=== PATIENT | male | born 1965 | race Caucasian/White ===

== ENCOUNTER 2020-05-16 23:24 | Emergency (ER) | payer OTHER, SELFPAY ==
[2020-05-16 23:27] VITALS: BP 145/84; PULSE 93; RESP 18; TEMP 36.7; O2SAT 95; BMI 28.1
--- NOTE | 2020-05-17 01:10 | XR_ITS ---
EXAMINATION: XR CHEST CLINICAL INFORMATION: Cough COMPARISON: 09/19/2017 TECHNIQUE: 2 views of the chest were obtained. FINDINGS: The lungs are well expanded. There is no focal consolidation, edema, or effusion. No pneumothorax. The cardiomediastinal silhouette is within normal limits. No acute osseous abnormality. IMPRESSION: Clear lungs.
[2020-05-17 02:16] LABS: MANUAL DIFF FLAG NO
[2020-05-17 02:17] LABS: Basophils Percent Auto 0.3 % (0-2); Eosinophils Absolute Auto 0.1 X10*3/uL (0.0-0.4); Eosinophils Percent Auto 1.4 % (0-4); Hematocrit 43.9 % (42-52); Hemoglobin 14.1 g/dl (14.0-18.0); Imm Gran Abs Auto 0.03 X10*3/uL (0.00-0.03); Imm Gran Pct Auto 0.3 % (0.0-0.4); Lymphocytes Absolute Auto 2.5 X10*3/uL (1.2-4.9); Lymphocytes Percent Auto 24.9 % (20-40); Mean Corpuscular HGB Conc 32.1 g/dl (31.0-36.0); Mean Corpuscular Hemoglobin 28.2 pg (27.0-33.0); Mean Corpuscular Volume 87.8 fL (80-98); Mean Platelet Volume 10.2 fL (9.4-12.4); Monocytes Percent Auto 9.6 % (2-11); Neutrophils Absolute Auto 6.3 X10*3/uL (2.0-8.3); Neutrophils Percent Auto 63.5 % (45-73); Platelet Count 232 X10*3/uL (160-400); Red Cell Distribution Width 14.1 % (11.0-16.0)
[2020-05-17 02:46] LABS: Alanine Aminotransferase 27 U/L (0-40); Albumin Level 4.2 g/dL (3.5-5.0); Alkaline Phosphatase 107 U/L (39-117); Anion Gap 13 (12-20); Aspartate Amino Transferase 22 U/L (5-37); Bilirubin Direct < 0.2 mg/dL (0.0-0.5); Bilirubin Total 0.3 mg/dL (0.0-1.0); Blood Urea Nitrogen 20 mg/dL (9-16); Calcium 9.5 mg/dL (8.4-10.2); Carbon Dioxide 28 mmol/L (22-29); Chloride 105 mmol/L (96-108); Creatinine Clr Calc Pharmacy 99.2; Estimated Glomerular Filt Rate > 60; Glucose Random 113 mg/dL (60-115); Lipase 43 U/L (8-78); Potassium 4.3 mmol/l (3.3-5.1); Sodium 142 mmol/L (135-145); Total Protein 6.9 g/dL (6.5-8.0)
[2020-05-17 02:49] LABS: Troponin-I High Sensitivity 11.3 ng/L (<3.5-35.0)
--- NOTE | 2020-05-17 04:06 | ED.GENADULT ---
HPI - General Adult General Chief complaint: Dyspnea Stated complaint: SOB /ASTHMA Time Seen by Provider: 05/17/20 01:28 Source: patient Mode of arrival: ambulatory History of Present Illness HPI narrative: Related Data Allergies Allergy/AdvReac Type Severity Reaction Status Date / Time No Known Allergies Allergy Unverified 04/24/20 18:29 [No Known Allergies*] [facility] Past Medical History Medical History (Updated 05/17/20 @ 04:11 by Devyn Orosco DO) Anxiety Asthma Family History Family History (Updated 05/17/20 @ 05:36 by Devyn Orosco DO) Other Family history non-contributory Social History Social History Advance Directives: No Advance Directives Information Provided: No Physical Exam Vital Signs and I&O and Narrative: Vital Signs and I&O: Vital Signs Temp 98.1 F 05/16/20 23:27 Pulse 93 05/16/20 23:27 Resp 18 05/16/20 23:27 BP 145/84 H 05/16/20 23:27 Pulse Ox 95 05/16/20 23:27 Intake & Output 05/16/20 05/16/20 05/17/20 06:59 18:59 06:59 Weight 81.647 kg Body Mass Index 28.1 Medical Decision Making Lab Data Result diagrams: 05/17/20 02:11 05/17/20 02:11 Labs: Lab Results 05/17/20 05/17/20 05/17/20 Range/Units 02:11 02:11 02:11 WBC 10.0 (4.8-10.8) X10*3/uL RBC 5.00 (4.60-5.80) X10*6/uL Hgb 14.1 (14.0-18.0) g/dl Hct 43.9 (42-52) % MCV 87.8 (80-98) fL MCH 28.2 (27.0-33.0) pg MCHC 32.1 (31.0-36.0) g/dl RDW 14.1 (11.0-16.0) % Plt Count 232 (160-400) X10*3/uL MPV 10.2 (9.4-12.4) fL Immature Gran % (Auto) 0.3 (0.0-0.4) % Neut % (Auto) 63.5 (45-73) % Lymph % (Auto) 24.9 (20-40) % [place] % (Auto) 9.6 (2-11) % Eos % (Auto) 1.4 (0-4) % Baso % (Auto) 0.3 (0-2) % Lymph # (Auto) 2.5 (1.2-4.9) X10*3/uL [place] # (Auto) 1.0 (0.1-1.2) X10*3/uL Eos # (Auto) 0.1 (0.0-0.4) X10*3/uL Baso # (Auto) 0.0 (0.0-0.2) X10*3/uL Abs Immat Gran (auto) 0.03 (0.00-0.03) X10*3/uL Absolute Neuts (auto) 6.3 (2.0-8.3) X10*3/uL Absolute Nucleated RBC 0.000 (0.0-0.012) X10*3/uL Nucleated RBC % (auto) 0.0 (0.0-0.2) /100WBC Sodium 142 (135-145) mmol/L Potassium 4.3 (3.3-5.1) mmol/l Chloride 105 (96-108) mmol/L Carbon Dioxide 28 (22-29) mmol/L Anion Gap 13 (12-20) BUN 20 H (9-16) mg/dL Creatinine 0.86 (0.5-1.4) mg/dL Estim Creat Clear Calc 99.2 Estimated GFR > 60 Random Glucose 113 (60-115) mg/dL Calcium 9.5 (8.4-10.2) mg/dL Total Bilirubin 0.3 (0.0-1.0) mg/dL Direct Bilirubin < 0.2 (0.0-0.5) mg/dL AST 22 (5-37) U/L ALT 27 (0-40) U/L Alkaline Phosphatase 107 (39-117) U/L Troponin I High Sens 11.3 (<3.5-35.0) ng/L Total Protein 6.9 (6.5-8.0) g/dL Albumin 4.2 (3.5-5.0) g/dL Lipase 43 (8-78) U/L Discharge Plan Discharge Clinical Impression: Acute viral pharyngitis Upper respiratory infection Qualifiers: URI type: unspecified viral URI Qualified Code(s): J06.9 - Acute upper respiratory infection, unspecified Patient Disposition: Home, Self-Care Instructions: Pharyngitis (ED), Cold Symptoms (ED) Additional Instructions: CDC Guidelines for home isolation: Follow these instructions until your Covid results return - Stay away from others - Limit contact with pets and animals: If you must care for a pet, wash your hands before and after interacting with them - Wear a mask if you are sick - Cover your mouth and nose with a tissue when you cough or sneeze. Dispose of tissues in a lined trash can and wash your hands immediately with soap and water for at least 20 seconds. If soap and water are not available, clean hands with alcohol-based hand fisher pound net or trap that contains at least 60% alcohol. - Clean your hands often with soap and water for at least 20 seconds - Avoid touching your eyes, nose and mouth with unwashed hands - Do not share dishes, drinking glasses, cups, eating utensils, towels, or bedding with other people in your home. After using these items, wash them thoroughly with soap and water or put in the director of media. - Clean high-touch surfaces in your isolation area ( sick room and bathroom) every day; let a caregiver clean and disinfect high-touch surfaces in other areas of the home. Clean the area or item with soap and water or another detergent if it is dirty. Then, use a household disinfectant. Seek medical attention, but call first: - Seek medical care right away if your illness is worsening (for example, if you have difficulty breathing). - Call your doctor before going in: Before going to the doctor's office or emergency room, call ahead and tell them your symptoms. They will tell you what to do. - If possible, put on a facemask before you enter the building. If you can't put on a facemask, try to keep a safe distance from other people (at least 6 feet away). This will help protect the people in the office or waiting room. - Follow care instructions from your healthcare provider and local health department: Your local health authorities will give instructions on checking your symptoms and reporting information. Emergency warning signs for COVID-19: - Difficulty breathing or shortness of breath - Persistent pain or pressure in the chest - New confusion or inability to arouse - Bluish lips or face CDC Guidelines for home isolation: Follow these instructions until your Covid results return - Stay away from others - Limit contact with pets and animals: If you must care for a pet, wash your hands before and after interacting with them - Wear a mask if you are sick - Cover your mouth and nose with a tissue when you cough or sneeze. Dispose of tissues in a lined trash can and wash your hands immediately with soap and water for at least 20 seconds. If soap and water are not available, clean hands with alcohol-based hand fisher pound net or trap that contains at least 60% alcohol. - Clean your hands often with soap and water for at least 20 seconds - Avoid touching your eyes, nose and mouth with unwashed hands - Do not share dishes, drinking glasses, cups, eating utensils, towels, or bedding with other people in your home. After using these items, wash them thoroughly with soap and water or put in the director of media. - Clean high-touch surfaces in your isolation area ( sick room and bathroom) every day; let a caregiver clean and disinfect high-touch surfaces in other areas of the home. Clean the area or item with soap and water or another detergent if it is dirty. Then, use a household disinfectant. Seek medical attention, but call first: - Seek medical care right away if your illness is worsening (for example, if you have difficulty breathing). - Call your doctor before going in: Before going to the doctor's office or emergency room, call ahead and tell them your symptoms. They will tell you what to do. - If possible, put on a facemask before you enter the building. If you can't put on a facemask, try to keep a safe distance from other people (at least 6 feet away). This will help protect the people in the office or waiting room. - Follow care instructions from your healthcare provider and local health department: Your local health authorities will give instructions on checking your symptoms and reporting information. Emergency warning signs for COVID-19: - Difficulty breathing or shortness of breath - Persistent pain or pressure in the chest - New confusion or inability to arouse - Bluish lips or face Thank you for visiting the emergency department today. If your symptoms worsen or do not resolve completely please return to the emergency department immediately or call 911. if he have any questions please call your primary care physician Referrals: Beba Alba MD [Primary Care Provider] - 2 days Interventions: ED Discharge Assessment Last Done: 05/17/20 04:18 Discharge Date/Time: 05/17/20 04:18
== END 2020-05-17 04:18 | disposition home or self-care (01) ==
PROVIDERS: Emergency Provider Emergency Medicine; PCP Internal Medicine
DX: J02.8 Acute pharyngitis due to other specified organisms (principal); J06.9 Acute upper respiratory infection, unspecified; Z20.828 Contact with and (suspected) exposure to other viral communicable diseases; Z79.899 Other long term (current) drug therapy
CPT/HCPCS: 36415; 71046; 80048; 80076; 83690; 84484; 85025; 87071; 87635; 99283

== ENCOUNTER 2020-08-14 14:36 | Outpatient (REF) | payer OTHER, SELFPAY | END 2020-08-14 14:37 | disposition home or self-care (01) | LOC: HO.LAB 14:36 | PROVIDERS: Visit Provider Internal Medicine | DX: Z20.828 Contact with and (suspected) exposure to other viral communicable diseases (principal) | CPT/HCPCS: 36415; C9803; U0003 ==

== ENCOUNTER → 2020-12-17 10:26 | Outpatient (BNVA) | payer OTHER, SELFPAY | PROVIDERS: PCP Internal Medicine; Visit Provider Physician Assistant | DX: M67.432 Ganglion, left wrist (principal); M65.30 Trigger finger, unspecified finger | CPT/HCPCS: 99202 ==

== ENCOUNTER 2021-01-15 12:27 | Day surgery (SDC) | payer OTHER, SELFPAY ==
[2021-01-09 10:43] VITALS: BMI 28.1
--- NOTE | 2021-01-14 09:53 | HO.ANESPROP2 ---
Documented by User: Jolanta Hoang 01/14/21 09:54 HPI - Anesthesia Eval Consult details Narrative: 55yo M for Left Excision of Ganglion Wrist Cyst and Flexor Tendon Repair with Excision Ulnar Ring Finger PMFSH Active Problems Active Problems: All Active Problems (Updated 12/17/20 @ 13:27 by Elina Guerra PA-C) Ganglion, right wrist (Acute) Trigger finger, right (Acute) Ganglion, left wrist (Acute) Trigger finger, left (Acute) Past Medical History Medical History Anxiety Asthma Family History Family History Father No problems noted. Mother No problems noted. Brother No problems noted. Sister No problems noted. Son No problems noted. Daughter No problems noted. Other Family history non-contributory Surgical History Surgical History H/O colonoscopy History of inguinal hernia repair Hx of hand surgery Social History Social History Patient Tobacco Use Status: Former Tobacco user Use of substances other than those prescribed or required for medical reasons: No Are you DNR?: No Advance Directives: No Advance Directives Information Provided: Yes Current occupational status: disabled Current occupation: left handed Meds Allergies Allergy/AdvReac Type Severity Reaction Status Date / Time No Known Allergies Allergy Verified 01/15/21 12:53 [No Known Allergies*] Home Medications Medication Instructions Recorded Confirmed Last Taken Type melatonin 2 cap PO BEDTIME PRN 01/15/21 01/15/21 Unknown History Exam Exam Date and Time: January 14, 2021 0953 Height,Weight and Vital Signs: Height 5 ft 7 in Weight 81.647 kg Airway Adult Head Mouth w/Numbe Teeth: 1. Loose Assessment and Plan Assessment Anesthesia Assessment: Chart Reviewed Documented by User: Adarsh Cordon MD 01/15/21 14:01 [facility] Past Medical History Medical History Anxiety Asthma Family History Family History Father No problems noted. Mother No problems noted. Brother No problems noted. Sister No problems noted. Son No problems noted. Daughter No problems noted. Other Family history non-contributory Surgical History Surgical History H/O colonoscopy History of inguinal hernia repair Hx of hand surgery Social History Social History Patient Tobacco Use Status: Former Tobacco user Use of substances other than those prescribed or required for medical reasons: No Are you DNR?: No Advance Directives: No Advance Directives Information Provided: Yes Current occupational status: disabled Current occupation: left handed Meds Allergies Allergy/AdvReac Type Severity Reaction Status Date / Time No Known Allergies Allergy Verified 01/15/21 12:53 [No Known Allergies*] Home Medications Medication Instructions Recorded Confirmed Last Taken Type melatonin 2 cap PO BEDTIME PRN 01/15/21 01/15/21 Unknown History Exam Airway Mallampati Class: II TM Dist: >3cm Neck ROM: Full Adult Head Mouth w/Numbe Teeth: 1. Loose Loose/Missing/Broken Teeth: Yes Assessment and Plan Assessment Anesthesia Assessment: Anesthesia Plan Discussed and Chart Reviewed Final Anesthetic Review NPO: Yes ASA Class: II Final Preanesthetic Review: No Changes in Pt Med Stat, Meds/Allgs Chart Reviewed, Consent Obtained/Reviewed and Anes Risks/Benef Reviewed Patient Risk: Low Procedure Risk: Low Anesthetic Plan Anesthetic Plan: GA Disposition: Standard PACU
[2021-01-15 13:05] VITALS: BP 136/83; PULSE 72; RESP 16; TEMP 36.7; O2SAT 97
[2021-01-15] MEDS: Lactated Ringers 1,000 ML 100 ML IVCONT (13:34)
--- NOTE | 2021-01-15 14:45 | MHC.SHP ---
Pre-Procedural Eval Section B Chief Complaint: ganglion,trigger finger Allergies: Allergies Allergy/AdvReac Type Severity Reaction Status Date / Time No Known Allergies Allergy Verified 01/15/21 12:53 [No Known Allergies*] Plan I have reviewed the history and physical and performed a pertinent physical examination on my patient. No changes have occurred unless specified.
--- NOTE | 2021-01-15 14:45 | W.PM.OPN ---
Operative Note Operative Note Date of Service: 01/15/21 Narrative: Operative Note Narrative: Preop diagnosis: 1. The left volar wrist ganglion over the CMC joint of the left thumb 2. Left ring finger persistent trigger finger status post A1 kathi release Postop diagnosis: Same Procedure: 1. Left volar wrist ganglion excisional biopsy 2. Left ring finger flexor digitorum superficialis tenotomy of the ulnar slip Surgeon: Malini Martinez MD Anesthesia: Mac plus regional block Findings: No locking and catching after tenotomy, 1.5 cm ganglion cyst filled with clear viscous fluid consistent with a ganglion Implants: None Tourniquet time: 36 minutes EBL: 5.0 ml Specimen: Ganglion and the ulnar 1/2 of the ring finger FDS tendon Drains: None Complications: None Disposition: Brought to the recovery room in stable condition Plan: Follow-up in 10-14 days for wound check, suture removal and to check pathology Indications: The patient is a 55 year old man with a ganglion over the volar base of the left thumb at the CMC joint, and a persistent left ring finger trigger finger after having an A1 kathi release at an outside facility a few years ago. . The risks and benefits of operative treatment, including but not limited to risk of damage to blood vessels, nerves, tendons, infection, recurrence, persistent pain or numbness, incomplete resolution of preoperative symptoms, or need for further surgery were discussed with the patient and they wished to proceed with surgery. Procedure: Once consent was obtained patient was brought back to the operating suite and placed in the operating table in a supine position. . Perioperative antibiotics and anesthesia was administered by the anesthesia team. A tourniquet was applied to the proximal aspect of the left upper extremity and the limb was prepped and draped in a standard surgical fashion. The limb was elevated exsanguinated with Esmarch bandage and the tourniquet inflated to 250 mm of mercury for a total tourniquet time of 36 minutes. An interrupted burners incision was made over the A3 and A1 kathi areas of the patient's left ring finger. The incisions were made through the skin to the subcutaneous tissues using a 15. Blade. I then dissected down to the level of the flexor tendon sheath at the A1 kathi level. The A1 kathi was then released by incising it longitudinally 1st with a 15. Blade then with tenotomy scissors. I then opened the A3 kathi over the PIP level of the flexor tendon sheath. This was done longitudinally using tenotomy scissors. The FDP tendon was retracted radially and the ulnar slip of the FDS tendon was identified. I then performed a tenotomy of the ulnar slip of the FDS tendon by incising it with a 15. Blade. Tenotomy scissors were used to longitudinally incise the connection between the radial and ulnar slips of the FDS tendon. At the A1 kathi level I then withdrew the ulnar slip of the FDS tendon and incised the proximal aspect of the ulnar slip from the proximal aspect of the FDS tendon in a beveled fashion. There was no longer any locking and catching with passive range of motion. The slip of flexor tendon was sent for pathology. I then turned my attention to the volar ganglion which was situated distal to the distal wrist crease essentially lying over the volar radial aspect of the CMC joint of the thumb. A 2.5 cm longitudinal Incision was made through the skin to the subcutaneous tissue directly over the ganglion. This was done using a 15. Blade. I then carefully dissected down to the level of the volar wrist ganglion. It measured at least 1.5 cm in diameter with a stalk extending down to the wrist joint. We dissect the cyst from the surrounding tissues. Care was taken to protect the radial artery which was visualized just deep to our ganglion. Bipolar electrocautery was utilized to cauterize the stalk and the ganglion was removed and placed on the back table and sent for histopathology. No further masses were identified. At this point the tourniquet was deflated and hemostasis obtained with a brief period of local pressure and bipolar electrocautery. The wounds were copiously irrigated with normal saline. The skin edges were reapproximated with 5-0 nylon suture. The wounds were infiltrated with some 1% lidocaine with epinephrine for postop pain control and a sterile dressing was applied. The patient appears to have tolerated the procedures well and with no complications. All digits were well vascularized conclusion of the case.
[2021-01-15 16:02] VITALS: BP 130/69; PULSE 82; RESP 12; TEMP 36.7; O2SAT 97
[2021-01-15 16:07] VITALS: BP 136/64; PULSE 88; RESP 16; O2SAT 95
[2021-01-15 16:13] VITALS: BP 126/67; PULSE 85; RESP 18; O2SAT 96
[2021-01-15 16:17] VITALS: BP 133/74; PULSE 67; RESP 18; O2SAT 95
[2021-01-15 16:30] VITALS: BP 131/75; PULSE 65; RESP 18; TEMP 36.6; O2SAT 95
== END 2021-01-15 16:39 | disposition home or self-care (01) ==
PROVIDERS: PCP Internal Medicine; Visit Provider Orthopaedic Surgery
PROC: (CPT 25111; principal; 2021-01-15 14:40)
PROC: (CPT 25111; 2021-01-15 14:40)
DX: M67.432 Ganglion, left wrist (principal); M65.342 Trigger finger, left ring finger; J45.909 Unspecified asthma, uncomplicated; F41.9 Anxiety disorder, unspecified; Z87.891 Personal history of nicotine dependence
CPT/HCPCS: 25111; 26170; 88304; J0690; J1100; J2250; J2405; J3010

== ENCOUNTER → 2021-01-26 09:53 | Outpatient (BNVA) | payer OTHER, SELFPAY | PROVIDERS: Visit Provider Orthopaedic Surgery | DX: M67.432 Ganglion, left wrist (principal); M65.342 Trigger finger, left ring finger | CPT/HCPCS: 99212 ==

== ENCOUNTER 2021-04-13 14:55 | Inpatient (IN) | payer OTHER, SELFPAY ==
[2021-04-13] VITALS (11 sets, daily range): BP systolic 122–142; BP diastolic 65–85; PULSE 65–93; RESP 15–18; TEMP 36.1–37.1; O2SAT 94–98; BMI 27.3; BMI 27.9
--- NOTE | ~2021-04-13 | CT_ITS ---
EXAMINATION: CT ABDOMEN AND PELVIS WITH CONTRAST CLINICAL INFORMATION: Right lower quadrant pain COMPARISON: Prior chest radiograph TECHNIQUE: Multidetector volumetric images were obtained from the superior aspect of the liver through the pubic symphysis following administration 85 mL of Omnipaque 350 intravenous contrast. Sagittal and coronal reformatted images were obtained on the technologist's workstation. Oral contrast: No This CT examination was performed using dose optimization techniques as appropriate, variously including the following: *Automated exposure control *Adjustment of mA and/or kV according to patient size (this includes techniques or standardized protocols for targeted exams where dose is matched to indication/reason for exam; i.e. extremities or head) *Use of iterative reconstruction technique DLP: 532 mGy-cm FINDINGS: LUNG BASES: Minor dependent atelectasis. LIVER, GALLBLADDER, AND BILIARY TREE: The liver is normal in size, shape, and attenuation. No focal hepatic lesion or biliary ductal dilatation is present. The gallbladder is unremarkable with no evidence of radiopaque gallstones, gallbladder wall thickening, or obvious pericholecystic inflammatory changes. PANCREAS: Unremarkable. SPLEEN: Unremarkable. ADRENAL GLANDS: Unremarkable. KIDNEYS AND URETERS: The kidneys are normal in size, shape, and attenuation. No hydronephrosis, hydroureter, or calculi seen. No perinephric stranding. BLADDER: Unremarkable. GASTROINTESTINAL TRACT: The appendix is abnormally dilated measuring 12 mm in transverse dimension, and distended with stool. No definite appendicolith. There is periappendiceal fat stranding. This appearance is consistent with early acute appendicitis. Incidental note is made of a small right inguinal hernia containing a nonobstructed small bowel loop. A small left inguinal hernia contains only fat. No free air. No free fluid. No abscess. No bulky adenopathy. No bowel obstruction. The visualized esophagus and stomach are normal in appearance. Shotty mesenteric lymph nodes are nonspecific. ABDOMINAL WALL: As noted above, small right inguinal hernia contains nonobstructed small bowel loop. Small left internal hernia contains only fat. LYMPH NODES: Shotty mesenteric nodes are nonspecific. No retroperitoneal celiac or periportal adenopathy. VASCULAR: Normal caliber abdominal aorta. No caval or branch vessel abnormality identified. PELVIC VISCERA: Prostate and seminal vesicles are within normal limits. No pelvic free fluid or lymphadenopathy OSSEOUS STRUCTURES: Shortness moderately severe degenerative disc disease at the L5-S1 level. CT/CT abdomen pelvis w con IMPRESSION: 1. Early acute appendicitis. 2. Bilateral inguinal hernias, the right containing nonobstructed small bowel. This critical result was discussed with Dr. Felix at 6:44 PM on 04/13/2020 and it was ascertained that the content and urgency of the report was understood at the time of direct communication.
--- NOTE | 2021-04-13 16:30 | ED.ABDPAIN ---
HPI - Abdominal Pain General Chief Complaint: Abdominal Pain Stated Complaint: ABD PAIN Time Seen by Provider: 04/13/21 16:29 Source: patient Mode of arrival: ambulatory Limitations: no limitations History of Present Illness HPI narrative: Patient no significant abdominal problem noticed pain in the right lower quadrant since 19:00 yesterday during got worse had 2 or 3 loose bowels earlier no fever no chills does not feel hungry patient never had similar pain in the past no history of kidney stone no urinary complaints no blood in the stool Related Data Home Medications Medication Instructions Recorded Confirmed melatonin 5 mg capsule 2 cap PO BEDTIME PRN 01/15/21 01/15/21 Previous Rx's Medication Instructions Recorded oxycodone-acetaminophen 5 mg-325 1 - 2 tab PO Q6H PRN #20 tab 01/15/21 mg tablet acetaminophen 500 mg capsule 1,000 mg PO Q6H PRN 30 Days #90 cap 01/21/21 Allergies Allergy/AdvReac Type Severity Reaction Status Date / Time No Known Allergies Allergy Verified 01/26/21 10:19 [No Known Allergies*] Review of Systems Review of Systems Yes all other systems are reviewed and are negative Physical Exam Vital Signs: Vital Signs: Last Vital Signs Temp 98.3 F 04/13/21 20:15 Pulse 77 04/13/21 20:15 Resp 16 04/13/21 20:15 BP 139/78 04/13/21 20:15 Pulse Ox 97 04/13/21 20:15 Body Mass Index 27.3 Appearance: Alert. Oriented X3. No acute distress. Eyes: PERRLA, No Nystagmus no pallor or icterus ENT: Pharynx normal. Oral Mucosa moist Neck: Normal inspection. Neck supple. CVS: Normal heart rate and rhythm. Pulses normal. Respiratory: No respiratory distress. Equal air entry bilateral, no wheezing/rales/rhonchi Abdomen: Soft , tenderness right lower quadrant with guarding no rebound tenderness Bowel sounds are present, no mass palpable, no CVA tenderness Skin: Skin warm and dry. Normal skin color. Normal skin turgor. Extremities: No lower extremity edema. No calf tenderness Neuro: Oriented X 3. No motor deficit MDM - Abdominal Pain MDM Narrative Medical decision making narrative: Patient uncomplicated acute appendicitis seen by Dr. Geller surgery will take the patient to OR tonight patient has slightly elevated lactic acid level was given IV Zosyn and IV fluids in the ER Lab Data Attestation: I reviewed the patient's lab results. Result diagrams: 04/13/21 16:56 04/13/21 16:56 Labs: Lab Results 04/13/21 04/13/21 04/13/21 Range/Units 16:56 16:56 16:56 WBC 11.8 H (4.8-10.8) X10*3/uL RBC 5.15 (4.60-5.80) X10*6/uL Hgb 14.4 (14.0-18.0) g/dl Hct 44.2 (42-52) % MCV 85.8 (80-98) fL MCH 28.0 (27.0-33.0) pg MCHC 32.6 (31.0-36.0) g/dl RDW 13.5 (11.0-16.0) % Plt Count 250 (160-400) X10*3/uL MPV 10.0 (9.4-12.4) fL Immature Gran % (Auto) 0.3 (0.0-0.4) % Neut % (Auto) 70.7 (45-73) % Lymph % (Auto) 20.4 (20-40) % [place] % (Auto) 7.5 (2-11) % Eos % (Auto) 0.8 (0-4) % Baso % (Auto) 0.3 (0-2) % Lymph # (Auto) 2.4 (1.2-4.9) X10*3/uL [place] # (Auto) 0.9 (0.1-1.2) X10*3/uL Eos # (Auto) 0.1 (0.0-0.4) X10*3/uL Baso # (Auto) 0.0 (0.0-0.2) X10*3/uL Abs Immat Gran (auto) 0.03 (0.00-0.03) X10*3/uL Absolute Neuts (auto) 8.4 H (2.0-8.3) X10*3/uL Absolute Nucleated RBC 0.000 (0.0-0.012) X10*3/uL Nucleated RBC % (auto) 0.0 (0.0-0.2) /100WBC Sodium 140 (135-145) mmol/L Potassium 4.7 (3.3-5.1) mmol/L Chloride 104 (96-108) mmol/L Carbon Dioxide 28 (22-29) mmol/L Anion Gap 13 (12-20) BUN 13 (9-16) mg/dL Creatinine 0.85 (0.5-1.4) mg/dL Estim Creat Clear Calc 98.0 Estimated GFR > 60 Random Glucose 92 (60-115) mg/dL Lactic Acid 3.0 H* (0.5-2.0) mmol/L Calcium 9.3 (8.4-10.2) mg/dL Total Bilirubin 0.3 (0.0-1.0) mg/dL AST 22 (5-37) U/L ALT 24 (0-40) U/L Alkaline Phosphatase 126 H (39-117) U/L Total Protein 7.3 (6.5-8.0) g/dL Albumin 4.2 (3.5-5.0) g/dL Lipase 45 (8-78) U/L Urine Color Urine Appearance Urine pH (5.0-8.0) Ur Specific [place] (1.005-1.025) Urine Protein (NEG-TRACE) MG/DL Urine Glucose (UA) (NEG) MG/DL Urine Ketones (NEG) MG/DL Urine Blood (NEG) Urine Nitrite (NEG) Ur Leukocyte Esterase (NEG) 04/13/21 Range/Units 16:56 WBC (4.8-10.8) X10*3/uL RBC (4.60-5.80) X10*6/uL Hgb (14.0-18.0) g/dl Hct (42-52) % MCV (80-98) fL MCH (27.0-33.0) pg MCHC (31.0-36.0) g/dl RDW (11.0-16.0) % Plt Count (160-400) X10*3/uL MPV (9.4-12.4) fL Immature Gran % (Auto) (0.0-0.4) % Neut % (Auto) (45-73) % Lymph % (Auto) (20-40) % [place] % (Auto) (2-11) % Eos % (Auto) (0-4) % Baso % (Auto) (0-2) % Lymph # (Auto) (1.2-4.9) X10*3/uL [place] # (Auto) (0.1-1.2) X10*3/uL Eos # (Auto) (0.0-0.4) X10*3/uL Baso # (Auto) (0.0-0.2) X10*3/uL Abs Immat Gran (auto) (0.00-0.03) X10*3/uL Absolute Neuts (auto) (2.0-8.3) X10*3/uL Absolute Nucleated RBC (0.0-0.012) X10*3/uL Nucleated RBC % (auto) (0.0-0.2) /100WBC Sodium (135-145) mmol/L Potassium (3.3-5.1) mmol/L Chloride (96-108) mmol/L Carbon Dioxide (22-29) mmol/L Anion Gap (12-20) BUN (9-16) mg/dL Creatinine (0.5-1.4) mg/dL Estim Creat Clear Calc Estimated GFR Random Glucose (60-115) mg/dL Lactic Acid (0.5-2.0) mmol/L Calcium (8.4-10.2) mg/dL Total Bilirubin (0.0-1.0) mg/dL AST (5-37) U/L ALT (0-40) U/L Alkaline Phosphatase (39-117) U/L Total Protein (6.5-8.0) g/dL Albumin (3.5-5.0) g/dL Lipase (8-78) U/L Urine Color YELLOW Urine Appearance CLEAR Urine pH 6.5 (5.0-8.0) Ur Specific [place] 1.020 (1.005-1.025) Urine Protein NEG (NEG-TRACE) MG/DL Urine Glucose (UA) NEG (NEG) MG/DL Urine Ketones NEG (NEG) MG/DL Urine Blood NEG (NEG) Urine Nitrite NEG (NEG) Ur Leukocyte Esterase NEG (NEG) Imaging Data CT scan - abdomen: Radiologist's impression: [address] [address] [address] Scan Report Signed Patient: Jack Graham MR#: [id number] : 1965 Acct:[id number] Age/Sex: 55 / M ADM Date: 04/13/21 Loc: HO.ED Attending Dr: Ordering Physician: Fede Solorio MD Date of Service: 04/13/21 Procedure(s): CT abdomen pelvis w con Accession Number(s): [id number] cc: Fede Solorio MD~ EXAMINATION: CT ABDOMEN AND PELVIS WITH CONTRAST? CLINICAL INFORMATION: Right lower quadrant pain? COMPARISON: Prior chest radiograph? TECHNIQUE: Multidetector volumetric images were obtained from the superior aspect of the liver through the pubic symphysis following administration 85 mL of Omnipaque 350 intravenous contrast. Sagittal and coronal reformatted images were obtained on the technologist's workstation.? Oral contrast: No This CT examination was performed using dose optimization techniques as appropriate, variously including the following: *Automated exposure control *Adjustment of mA and/or kV according to patient size (this includes techniques or standardized protocols for targeted exams where dose is matched to indication/reason for exam; i.e. extremities or head) *Use of iterative reconstruction technique DLP: 532 mGy-cm FINDINGS: LUNG BASES: Minor dependent atelectasis.? LIVER, GALLBLADDER, AND BILIARY TREE: The liver is normal in size, shape, and attenuation. No focal hepatic lesion or biliary ductal dilatation is present. The gallbladder is unremarkable with no evidence of radiopaque gallstones, gallbladder wall thickening, or obvious pericholecystic inflammatory changes.? PANCREAS: Unremarkable.? SPLEEN: Unremarkable.? ADRENAL GLANDS: Unremarkable.? KIDNEYS AND URETERS: The kidneys are normal in size, shape, and attenuation. No hydronephrosis, hydroureter, or calculi seen. No perinephric stranding. ? BLADDER: Unremarkable.? GASTROINTESTINAL TRACT: The appendix is abnormally dilated measuring 12 mm in transverse dimension, and distended with stool. No definite appendicolith. There is periappendiceal fat stranding. This appearance is consistent with early acute appendicitis. Incidental note is made of a small right inguinal hernia containing a nonobstructed small bowel loop. A small left inguinal hernia contains only fat. No free air. No free fluid. No abscess. No bulky adenopathy. No bowel obstruction. The visualized esophagus and stomach are normal in appearance. [place] mesenteric lymph nodes are nonspecific.? ABDOMINAL WALL: As noted above, small right inguinal hernia contains nonobstructed small bowel loop. Small left internal hernia contains only fat.? LYMPH NODES: [place] mesenteric nodes are nonspecific. No retroperitoneal celiac or periportal adenopathy. VASCULAR: Normal caliber abdominal aorta. No caval or branch vessel abnormality identified. PELVIC VISCERA: Prostate and seminal vesicles are within normal limits. No pelvic free fluid or lymphadenopathy? OSSEOUS STRUCTURES: Shortness moderately severe degenerative disc disease at the L5-S1 level.? CT/CT abdomen pelvis w con IMPRESSION: ? 1. Early acute appendicitis. ? 2. Bilateral inguinal hernias, the right containing nonobstructed small bowel. ? This critical result was discussed with Dr. Felix at 6:44 PM on 04/13/2020 and it was ascertained that the content and urgency of the report was understood at the time of direct communication. ? Dictated By: MAGO TAYLOR MD Signed By: <Electronically signed by MAGO TAYLOR MD in OV> 04/13/21 1845 DD/ 1633 TD/TT:? Delivery Representative: ALLY Discharge Plan Discharge Clinical Impression: Acute appendicitis Qualifiers: Acute appendicitis type: with localized peritonitis Appendicitis gangrene presence: without gangrene Appendicitis perforation presence: without perforation Appendicitis abscess presence: without abscess Qualified Code(s): K35.30 - Acute appendicitis with localized peritonitis, without perforation or gangrene Patient Disposition: Admitted As Inpatient [facility] Past Medical History Medical History Anxiety Asthma Surgical History H/O colonoscopy History of inguinal hernia repair Hx of hand surgery Family History Family History Father No problems noted. Mother No problems noted. Brother No problems noted. Sister No problems noted. Son No problems noted. Daughter No problems noted. Other Family history non-contributory Social History Social History Patient Tobacco Use Status: Former Tobacco user Advance Directives: No Current occupational status: disabled Current occupation: left handed
[2021-04-13] MEDS: 0.9 % Sodium Chloride 1,000 ML 999 ML IVCONT ×2 (16:57→18:27)
[2021-04-13] MEDS: ondansetron HCL 4 MG/2 ML VIAL IVPUSH (17:00)
[2021-04-13] MEDS: Morphine Sulfate 4 MG/ML CARTRIDGE IVPUSH (17:01)
[2021-04-13 17:02] LABS: MANUAL DIFF FLAG NO
[2021-04-13 17:03] LABS: Basophils Percent Auto 0.3 % (0-2); Eosinophils Absolute Auto 0.1 X10*3/uL (0.0-0.4); Eosinophils Percent Auto 0.8 % (0-4); Hematocrit 44.2 % (42-52); Hemoglobin 14.4 g/dl (14.0-18.0); Imm Gran Abs Auto 0.03 X10*3/uL (0.00-0.03); Imm Gran Pct Auto 0.3 % (0.0-0.4); Lymphocytes Absolute Auto 2.4 X10*3/uL (1.2-4.9); Lymphocytes Percent Auto 20.4 % (20-40); Mean Corpuscular HGB Conc 32.6 g/dl (31.0-36.0); Mean Corpuscular Volume 85.8 fL (80-98); Monocytes Absolute Auto 0.9 X10*3/uL (0.1-1.2); Monocytes Percent Auto 7.5 % (2-11); Neutrophils Absolute Auto 8.4 X10*3/uL (2.0-8.3); Neutrophils Percent Auto 70.7 % (45-73); Platelet Count 250 X10*3/uL (160-400); Red Blood Count 5.15 X10*6/uL (4.60-5.80); Red Cell Distribution Width 13.5 % (11.0-16.0); White Blood Count 11.8 X10*3/uL (4.8-10.8)
[2021-04-13 17:04] LABS: Glucose Urine UA NEG (NEG); Leukocyte Esterase Urine NEG (NEG); Nitrite Urine NEG (NEG); PH 6.5 (5.0-8.0); Urine Blood NEG (NEG); Urine Ketones NEG (NEG); Urine Protein NEG (NEG-TRACE)
[2021-04-13 17:06] LABS: Appearance Urine CLEAR; Color Urine YELLOW
[2021-04-13 17:22] LABS: Alanine Aminotransferase 24 U/L (0-40); Albumin Level 4.2 g/dL (3.5-5.0); Alkaline Phosphatase 126 U/L (39-117); Anion Gap 13 (12-20); Aspartate Amino Transferase 22 U/L (5-37); Bilirubin Total 0.3 mg/dL (0.0-1.0); Blood Urea Nitrogen 13 mg/dL (9-16); Calcium 9.3 mg/dL (8.4-10.2); Carbon Dioxide 28 mmol/L (22-29); Chloride 104 mmol/L (96-108); Estimated Glomerular Filt Rate > 60; Glucose Random 92 mg/dL (60-115); Lipase 45 U/L (8-78); Potassium 4.7 mmol/L (3.3-5.1); Sodium 140 mmol/L (135-145); Total Protein 7.3 g/dL (6.5-8.0)
[2021-04-13] MEDS: iohexoL 350 MG/ML 100 ML INFUS..BTL IV (18:12)
[2021-04-13] MEDS: Piperacillin Sodium/Tazobactam 3.375 GM in 0.9 % Sodium Chloride 50 ML IV (18:27)
[2021-04-13 19:00] LABS: Reflex Lactate? Lactic Acid Added
--- NOTE | 2021-04-13 19:32 | P.HPGS_ITS ---
History of Present Illness History of Present Illness Date of Service: 04/13/21 Chief complaint: ABD PAIN Narrative: Jack Collier is a 55 year old male presenting with complaints of abdominal pain in the right lower quadrant which began yesterday afternoon. He initially felt he needed to go to the bathroom but after having 3 bowel movements the pain did not improve. The pain became worse today any subsequently presented to the emergency department. He reports pain with ambulation but does have an appetite. He denies nausea, vomiting, fever, or chills. Denies a previous history of similar symptoms. Workup in the emergency department revealed tenderness in the right lower quadrant. WBC was elevated and CT of the abdomen revealed a thickened/dilated appendix consistent with acute appendicitis. Review of Systems Review of Systems: Yes all other systems are reviewed and are negative Constitutional: Constitutional: Denies chills, Denies fever(s), Denies malaise and Denies weight loss Cardiovascular: Cardiovascular: Denies chest pain, Denies rapid heart rate, Denies irregular heart rhythm and Denies dyspnea Respiratory: Respiratory: Denies chest congestion, Denies cough and Denies dyspnea Gastrointestinal: Gastrointestinal: Reports abdominal pain, Reports bloating, Denies constipation, Denies diarrhea, Denies nausea and Denies vomiting Genitourinary: Genitourinary: Reports no additional male genitourinary complaints Musculoskeletal: Musculoskeletal: Reports no additional musculoskeletal complaints Integumentary/Breasts: Skin/Breast: Reports system reviewed and no additional complaints, except as docu PMFSH Past Medical History Medical History Anxiety Asthma Family History Family History Father No problems noted. Mother No problems noted. Brother No problems noted. Sister No problems noted. Son No problems noted. Daughter No problems noted. Other Family history non-contributory Surgical History Surgical History H/O colonoscopy History of inguinal hernia repair Hx of hand surgery Social History Social History Patient Tobacco Use Status: Former Tobacco user Advance Directives: No Current occupational status: disabled Current occupation: left handed Meds Allergies Allergy/AdvReac Type Severity Reaction Status Date / Time No Known Allergies Allergy Verified 01/26/21 10:19 [No Known Allergies*] Home Medications Medication Instructions Recorded Confirmed Last Taken Type melatonin 5 mg capsule 2 cap PO BEDTIME PRN 01/15/21 01/15/21 Unknown History Physical Exam Vital Signs: Vital Signs: Last Vital Signs Temp 98.3 F 04/13/21 18:21 Pulse 69 04/13/21 18:28 Resp 18 04/13/21 18:28 BP 140/79 H 04/13/21 18:28 Pulse Ox 98 04/13/21 18:28 Body Mass Index 27.3 Const: General: cooperative, no acute distress and well developed Nutritional Appearance: well nourished Orientation/consciousness: patient oriented x3 Limitations: no limitations HENMT: Head: Yes normocephalic and Yes atraumatic Neck: Neck: Yes trachea midline and Yes supple Resp: Effort & Inspection: normal respiratory effort Auscultation: clear to auscultation bilaterally Cardio: Rate: regular rate Rhythm: regular rhythm Heart sounds: S1 normal heart sound present and S2 normal heart sound present GI: Palpation (GI): Soft to palpation, Tenderness to palpation present (GI) in the RLQ, at McBurney's point and Rovsing's sign positive; Negative for with no rebound tenderness and No Rebound tenderness present Auscultation: normal bowel sounds Rectal Exam - Male: Yes deferred Skin: General skin exam: no rashes or lesions noted Neuro: General: patient oriented x3 Extrem: General: Yes no clubbing, cyanosis or edema Results Results Labs: Short CBC 04/13/21 Range/Units 16:56 WBC 11.8 H (4.8-10.8) X10*3/uL Hgb 14.4 (14.0-18.0) g/dl Hct 44.2 (42-52) % Plt Count 250 (160-400) X10*3/uL BMP 04/13/21 16:56 Sodium 140 Potassium 4.7 Chloride 104 Carbon Dioxide 28 BUN 13 Creatinine 0.85 Calcium 9.3 Liver Function 04/13/21 Range/Units 16:56 Total Bilirubin 0.3 (0.0-1.0) mg/dL AST 22 (5-37) U/L ALT 24 (0-40) U/L Alkaline Phosphatase 126 H (39-117) U/L Albumin 4.2 (3.5-5.0) g/dL Urine 04/13/21 Range/Units 16:56 Urine Color YELLOW Urine Appearance CLEAR Urine pH 6.5 (5.0-8.0) Ur Specific [place] 1.020 (1.005-1.025) Urine Protein NEG (NEG-TRACE) MG/DL Urine Glucose (UA) NEG (NEG) MG/DL Abdomen CT scan report/results: image reviewed CT scan - pelvis: image reviewed Assessment and Plan (1) Acute appendicitis: Qualifiers: Acute appendicitis type: with localized peritonitis Appendicitis abscess presence: without abscess Appendicitis gangrene presence: without gangrene Appendicitis perforation presence: without perforation Qualified Code(s): K35.30 - Acute appendicitis with localized peritonitis, without perforation or gangrene Status: Acute 55-year-old male patient presenting with complaints of abdominal pain in the right lower quadrant of 1 day duration. The pain seems to be increasing in severity there for a presented to the emergency department. On examination patient is found to be tender in the right lower quadrant without rebound, guarding, or rigidity. No palpable masses are appreciated. Findings are suggestive of acute appendicitis. CT of the abdomen and pelvis confirms a thickened appendix consistent with acute appendicitis. We discussed the options including antibiotics verses appendectomy. I recommended a laparoscopic or possible open appendectomy and after discussion of the procedure, risks, and alternatives, he consents to the surgery. He has been added onto the operative schedule for today. Quality Stroke Does the patient have a stroke diagnosis?: No VTE Prior VTE?: No VTE Risk Level:: Surgical - low VTE Device Contraindication: N/A - Device Ordered VTE Drug Contraindication: Treatment Not Indicated Procedures Date of Service Date of Service: 04/13/21
[2021-04-13 20:12] LABS: ~Lactic Acid-LAB USE ONLY 2.1 mmol/L (0.5-2.0)
[2021-04-13 20:15] LABS: COVID-19 Test Negative (Negative)
--- NOTE | 2021-04-13 20:22 | HO.ANESPROP2 ---
[facility] Active Problems Active Problems: All Active Problems (Updated 04/13/21 @ 18:58 by Fede Solorio MD) Acute appendicitis (Acute) Trigger finger, left ring finger (Acute) Ganglion, right wrist (Acute) Trigger finger, right (Acute) Ganglion, left wrist (Acute) Trigger finger, left (Acute) Past Medical History Medical History Anxiety Asthma Functional capacity: independent ambulation Family History Family History Father No problems noted. Mother No problems noted. Brother No problems noted. Sister No problems noted. Son No problems noted. Daughter No problems noted. Other Family history non-contributory Family history of problems with anesthesia: No Surgical History Surgical History H/O colonoscopy History of inguinal hernia repair Hx of hand surgery History of Problems with Anesthesia: No Social History Social History Patient Tobacco Use Status: Former Tobacco user Advance Directives: No Current occupational status: disabled Current occupation: left handed Meds Allergies Allergy/AdvReac Type Severity Reaction Status Date / Time No Known Allergies Allergy Verified 01/26/21 10:19 [No Known Allergies*] Home Medications Medication Instructions Recorded Confirmed Last Taken Type melatonin 5 mg capsule 2 cap PO BEDTIME PRN 01/15/21 01/15/21 Unknown History Exam Exam Date and Time: April 13, [id number] Height,Weight and Vital Signs: Height 5 ft 7 in Weight 79.379 kg Last Vital Signs Temp 98.3 F 04/13/21 20:15 Pulse 77 04/13/21 20:15 Resp 16 04/13/21 20:15 BP 139/78 04/13/21 20:15 Pulse Ox 97 04/13/21 20:15 Pertinent Lab Results Pertinent Lab Results: Laboratory Tests 04/13/21 04/13/21 04/13/21 16:56 16:56 16:56 WBC 11.8 H RBC 5.15 Hgb 14.4 Hct 44.2 MCV 85.8 MCH 28.0 MCHC 32.6 RDW 13.5 Plt Count 250 MPV 10.0 Immature Gran % (Auto) 0.3 Neut % (Auto) 70.7 Lymph % (Auto) 20.4 [place] % (Auto) 7.5 Eos % (Auto) 0.8 Baso % (Auto) 0.3 Lymph # (Auto) 2.4 [place] # (Auto) 0.9 Eos # (Auto) 0.1 Baso # (Auto) 0.0 Abs Immat Gran (auto) 0.03 Absolute Neuts (auto) 8.4 H Absolute Nucleated RBC 0.000 Nucleated RBC % (auto) 0.0 Sodium 140 Potassium 4.7 Chloride 104 Carbon Dioxide 28 Anion Gap 13 BUN 13 Creatinine 0.85 Estim Creat Clear Calc 98.0 Estimated GFR > 60 Random Glucose 92 Lactic Acid 3.0 H* Lactic Acid Fup @ 2Hr Calcium 9.3 Total Bilirubin 0.3 AST 22 ALT 24 Alkaline Phosphatase 126 H Total Protein 7.3 Albumin 4.2 Lipase 45 Urine Color Urine Appearance Urine pH Ur Specific [place] Urine Protein Urine Glucose (UA) Urine Ketones Urine Blood Urine Nitrite Ur Leukocyte Esterase COVID-19 (ARVIND) COVID-Vycon 04/13/21 04/13/21 04/13/21 16:56 19:39 19:49 WBC RBC Hgb Hct MCV MCH MCHC RDW Plt Count MPV Immature Gran % (Auto) Neut % (Auto) Lymph % (Auto) [place] % (Auto) Eos % (Auto) Baso % (Auto) Lymph # (Auto) [place] # (Auto) Eos # (Auto) Baso # (Auto) Abs Immat Gran (auto) Absolute Neuts (auto) Absolute Nucleated RBC Nucleated RBC % (auto) Sodium Potassium Chloride Carbon Dioxide Anion Gap BUN Creatinine Estim Creat Clear Calc Estimated GFR Random Glucose Lactic Acid Lactic Acid Fup @ 2Hr 2.1 H* Calcium Total Bilirubin AST ALT Alkaline Phosphatase Total Protein Albumin Lipase Urine Color YELLOW Urine Appearance CLEAR Urine pH 6.5 Ur Specific [place] 1.020 Urine Protein NEG Urine Glucose (UA) NEG Urine Ketones NEG Urine Blood NEG Urine Nitrite NEG Ur Leukocyte Esterase NEG COVID-19 (ARVIND) Negative COVID-Cokonnect Com See Note Airway Mallampati Class: II TM Dist: >3cm Neck ROM: Full Heart: RRR Lungs: CTA Assessment and Plan Final Anesthetic Review Family History of Problems with Anesthesia: No History of Problems with Anesthesia: No
--- NOTE | 2021-04-13 20:46 | PC.NURSE ---
pt transported to OR via surgery staff, sent in stable condition w/ all belongings, bedside report given by Lupillo WEST
[2021-04-13 21:53] LABS: Reflex Lactate? 2 Y
--- NOTE | 2021-04-13 22:07 | P.OP_ITS ---
Operative Note Operative Note Date of Service: 04/13/21 Narrative: Preoperative diagnosis: Acute appendicitis Postoperative diagnosis: Same Procedure: Laparoscopic appendectomy Surgeon: Branden Geller MD Manager Of Maintenance: No physician Anesthesia: General endotracheal Indications for procedure: 55-year-old male patient presenting with complaints of right lower quadrant abdominal pain for 1 day duration found to have an elevated WBC and CT with thickened enlarged appendix consistent with acute appendicitis Operative findings: Enlarged acutely inflamed appendix consistent with acute appendicitis Specimen: Appendix Estimated blood loss: 2 mL Complications: None Procedure details: Patient was brought to the OR and placed in a supine position. After administering general anesthesia the patient's abdomen was prepped with ChloraPrep and draped in a sterile fashion. A surgical time-out was called and consent confirmed. Patient received preoperative antibiotics and Venodyne boots were in place. Local anesthesia consisting of 0.5% Sensorcaine with epinephrine was infiltrated in periumbilical region. A 5 mm incision was made below the umbilicus and carried down through subcutaneous tissue. A Veress needle was then inserted while elevating abdominal cavity with towel clips. After a positive drop test the abdomen was insufflated to a pressure of 15 mm of mercury. The Veress needle was removed and a 5 mm trocar inserted. The camera was then inserted in the abdomen explored. A 2nd 5 mm trocars placed in the lower midline. A 12 mm trocar was then placed in the left lower quadrant. The patient was then placed in a Trendelenburg position and rotated to the left. The appendix was identified in the right lower quadrant and brought up using blunt dissecting clamps. The mesentery of the appendix was then divided using the LigaSure. The appendiceal artery was cauterized and divided using the LigaSure. Dissection was continued down to the base of the cecum. An Endo-RUSLAN stapler with a purple reload was then used to divide the appendix at the base with the cecum. The appendix was then placed in Endo-Catch bag and brought out through the left lower quadrant incision. The abdomen was then irrigated with saline solution and suctioned dry. Wounds were checked for hemostasis. CO2 was then evacuated from the abdominal cavity and all trocars removed. Fascia was closed in the left lower quadrant incision using a [id number] 0 Polysorb suture. Skin was closed at all incisions using a subcuticular 4-0 Polysorb suture. Steri-Strips 2 x 2 gauze and Tegaderm were then applied. The patient tolerated the procedure well. Sponge, instrument, needle counts reported as correct. The patient was transferred to PACU in stable condition.
[2021-04-13 22:33] LABS: ~Lactic Acid-LAB USE ONLY 1.3 mmol/L (0.5-2.0)
[2021-04-13] MEDS: Dextrose 5 % and Lactated Ring 1,000 ML 125 ML IVCONT (23:44)
[2021-04-13] MEDS: Melatonin 3 MG TABLET 6 MG PO (23:44)
[2021-04-13] MEDS: 0.9 % Sodium Chloride Flush 3 ML SYRINGE IVFLUSH (23:48)
[2021-04-14 06:00] VITALS: BP 129/66; PULSE 59; RESP 14; TEMP 36; O2SAT 96
--- NOTE | 2021-04-14 07:26 | PM.PNGS ---
Subjective Subjective Date of Service: 04/14/21 Interval history: Feels comfortable; has not eaten since surgery. Pain well controlled this morning Physical Exam Vital Signs: Vital Signs: Last Vital Signs Temp 96.8 F 04/14/21 06:00 Pulse 59 04/14/21 06:00 Resp 14 04/14/21 06:00 BP 129/66 04/14/21 06:00 Pulse Ox 96 04/14/21 06:00 Body Mass Index 27.9 Const: General: comfortable and no acute distress Nutritional Appearance: well nourished Orientation/consciousness: patient oriented x3 Limitations: no limitations Resp: Effort & Inspection: normal respiratory effort and no respiratory distress Cardio: Rate: regular rate Rhythm: regular rhythm GI: Inspection: Yes normal to inspection and Yes incision (clean and intact) Palpation (GI): Soft to palpation, nontender and no guarding Skin: General skin exam: no rashes or lesions noted Neuro: General: patient oriented x3 Procedures Date of Service Date of Service: 04/14/21 Progress Note: A&P Assessment and plan (1) Acute appendicitis: Status: Acute Assessment and Plan: s/p lap appendectomy POD #1; patient is hemodynamically. Will see how he tolerates po this morning. Probable discharge later today. Fall Risk Details Current Medications: Current Medications Generic Name Dose Route Start Last Admin Trade Name Freq PRN Reason Stop Dose Admin Acetaminophen 650 mg 04/13/21 23:12 Acetaminophen 325 Mg Tablet PO Q6H PRN Pain, Mild (Pain Scale 1-3) Docusate Sodium 100 mg 04/13/21 23:12 Docusate Sodium 100 Mg Capsule PO DAILY PRN Constipation Dextrose/Lactated Ringer's 1,000 mls @ 125 mls/hr 04/13/21 23:12 04/13/21 23:44 D5lr IVCONT 125 mls/hr .Q8H CECIL Administration Melatonin 6 mg 04/13/21 23:12 04/13/21 23:44 Melatonin 3 Mg Tablet PO 6 mg BEDTIME PRN Administration Insomnia Morphine Sulfate 3 mg 04/13/21 23:12 Morphine Sulfate 2 Mg/Ml Cartridge IVPUSH Q3H PRN Pain, Severe (Pain Scale 7-10) Protocol Ondansetron HCl 4 mg 04/13/21 23:12 Ondansetron Hcl 4 Mg/2 Ml Vial IVPUSH Q8H PRN Nausea and Vomiting Oxycodone HCl 5 mg 04/13/21 22:22 Oxycodone Hcl Immed Release 5 Mg Tablet PO ONCE PRN Pain, Severe (Pain Scale 7-10) Oxycodone HCl 5 mg 04/13/21 23:12 Oxycodone Hcl Immed Release 5 Mg Tablet PO Q4H PRN Pain, Moderate (Pain Scale 4-6 Sodium Chloride 3 ml 04/14/21 00:00 04/13/21 23:48 0.9 % Sodium Chloride Flush 3 Ml Syringe IVFLUSH 3 ml QSHIFT CECIL Administration Time Spent With Patient Time: Total time spent is greater than 50% in coordination of care (as documented) at patient's floor/unit and/or counseling patient: Time with patient: 15 - 24 minutes Quality Stroke Does the patient have a stroke diagnosis?: No VTE Prior VTE?: No VTE Risk Level:: Surgical - low VTE Device Contraindication: N/A - Device Ordered VTE Drug Contraindication: Treatment Not Indicated
[2021-04-14] MEDS: Dextrose 5 % and Lactated Ring 1,000 ML 125 ML IVCONT (08:05)
--- NOTE | 2021-04-14 08:16 | HO.POSTANES ---
Post Anesthesia Evaluation Post Anesthesia Evaluation Vital Signs: Vital Signs Temp Pulse Resp BP Pulse Ox 04/14/21 06:00 96.8 F 59 14 129/66 96 04/13/21 22:57 97 F 67 15 142/76 H 97 04/13/21 22:35 98.3 F 75 16 128/76 95 04/13/21 22:20 97.2 F 70 16 122/65 96 04/13/21 22:15 87 16 136/78 96 04/13/21 22:10 93 16 125/85 94 04/13/21 22:05 97.3 F 93 16 131/78 96 Anesthesia: General Mental Status: Awake Pain Control: Satisfactory Nausea/Vomiting: None Hydration: Adequate
[2021-04-14 08:25] VITALS: BP 117/59; PULSE 61; RESP 16; TEMP 36.2; O2SAT 95
--- NOTE | 2021-04-14 09:18 | P.DS_ITS ---
DS: Providers Provider Date of Service: 04/14/21 <BARBARA Schumacher Last Filed: 04/14/21 09:36> Date of admission: 04/13/21 19:30 <BARBARA Schumacher Last Filed: 04/14/21 09:36> Primary care physician: Andrew Murrieta MD <BARBARA Schumacher Last Filed: 04/14/21 09:36> Attending physician on admission: Branden Geller <BARBARA Schumacher Last Filed: 04/14/21 09:36> DS: Diagnosis Discharge Diagnosis (1) Acute appendicitis: Status: Acute <BARBARA Schumacher Filed: 04/14/21 09:36> DS: Summary Hospital Course Hospital Course: BRIEF HPI: Jack Collier is a 55 year old male presenting with complaints of abdominal pain in the right lower quadrant which began yesterday afternoon.? He initially felt he needed to go to the bathroom but after having 3 bowel movements the pain did not improve.? The pain became worse today any subsequently presented to the emergency department.? He reports pain with ambulation but does have an appetite.? He denies nausea, vomiting, fever, or chills.? Denies a previous history of similar symptoms.? Workup in the emergency department revealed tenderness in the right lower quadrant.? WBC was elevated and CT of the abdomen revealed a thickened/dilated appendix consistent with acute appendicitis. HOSPITAL COURSE: The patient was admitted to the surgical service for further treatment of the acute appendicitis. He elected to proceed with surgery and was added onto the schedule for that day. On 04/14/21, a laparoscopic appendectomy was performed by Dr. Geller without complication. The patient tolerated the procedure well and was admitted to the medical/surgical floor for observation. The patient had an uncomplicated recovery course. He was doing well on POD #1 with good pain control, stable vitals and abdominal exam with appropriate post op tenderness and clean dressings. He was reassessed later that day and was tolerating a solid diet without nausea or vomiting. He felt ready for discharge. He was discharged to home on 04/14/21 in stable condition. <BARBARA Schumacher Last Filed: 04/14/21 09:36> Status at Discharge Functional status at discharge: independent ambulation <Chanelle ClifBARBARA [place] Samuel Last Filed: 04/14/21 09:36> Overall status at discharge: patient is progressing back to baseline <Chanelle Menezes PA-C Samuel Last Filed: 04/14/21 09:36> Time Spent with Patient Time attestation: Total time spent providing and/or coordinating discharge services: <Chanelle Menezes PA-C Samuel Last Filed: 04/14/21 09:36> Discharge coordination time: Less than 30 minutes <Chanelle Menezes PA-C Samuel Last Filed: 04/14/21 09:36> Quality: Stroke Does the patient have a stroke diagnosis?: No <Chanelle Menezes PA-C Samuel Last Filed: 04/14/21 09:36> Physical Exam Vital Signs: Vital Signs: Last Vital Signs Temp 97.1 F 04/14/21 08:25 Pulse 61 04/14/21 08:25 Resp 16 04/14/21 08:25 BP 117/59 L 04/14/21 08:25 Pulse Ox 95 04/14/21 08:25 Body Mass Index 27.9 <Chanelle ClifCINDY vegasLamine Baker Last Filed: 04/14/21 09:36> Const: General: healthy appearing, comfortable and no acute distress <Chanelle Menezes PA-C Samuel Last Filed: 04/14/21 09:36> Orientation/consciousness: patient oriented x3 <CINDY SchumacherLamine Baker Last Filed: 04/14/21 09:36> Eyes: Sclerae: sclerae normal <Chanelle CINDY MenezesLamine Baker Last Filed: 04/14/21 09:36> Resp: Effort & Inspection: normal respiratory effort <CINDY SchumacherLamine Baker Last Filed: 04/14/21 09:36> GI: Inspection: No distended and Yes incision (dressings c/d/i) <Chanelle Menezes PA-C Samuel Last Filed: 04/14/21 09:36> Palpation (GI): Soft to palpation, Tenderness to palpation present (GI) (mild incisional), no guarding and not rigid <Chanelle Menezes PA-C - Last Filed: 04/14/21 09:36> Skin: General skin exam: no rashes or lesions noted <Chanelle Menezes PA-C - Last Filed: 04/14/21 09:36> Neuro: General: patient oriented x3 <Chanelle Menezes PA-C - Last Filed: 04/14/21 09:36> DS: Data Data Completed and Pending Pending studies at discharge: Pending at discharge 04/13/21 21:45 Surgical [PTH] Routine <Chanelle Menezes PA-C - Last Filed: 04/14/21 09:36> Labs on day of discharge: Laboratory Results - last 24 hr 04/13/21 04/13/21 04/13/21 16:56 16:56 16:56 WBC 11.8 H RBC 5.15 Hgb 14.4 Hct 44.2 MCV 85.8 MCH 28.0 MCHC 32.6 RDW 13.5 Plt Count 250 MPV 10.0 Immature Gran % (Auto) 0.3 Neut % (Auto) 70.7 Lymph % (Auto) 20.4 [place] % (Auto) 7.5 Eos % (Auto) 0.8 Baso % (Auto) 0.3 Lymph # (Auto) 2.4 [place] # (Auto) 0.9 Eos # (Auto) 0.1 Baso # (Auto) 0.0 Abs Immat Gran (auto) 0.03 Absolute Neuts (auto) 8.4 H Absolute Nucleated RBC 0.000 Nucleated RBC % (auto) 0.0 Sodium 140 Potassium 4.7 Chloride 104 Carbon Dioxide 28 Anion Gap 13 BUN 13 Creatinine 0.85 Estim Creat Clear Calc 98.0 Estimated GFR > 60 Random Glucose 92 Lactic Acid 3.0 H* Lactic Acid Fup @ 2Hr Lactic Acid Fup @ 4Hr Calcium 9.3 Total Bilirubin 0.3 AST 22 ALT 24 Alkaline Phosphatase 126 H Total Protein 7.3 Albumin 4.2 Lipase 45 Urine Color Urine Appearance Urine pH Ur Specific [place] Urine Protein Urine Glucose (UA) Urine Ketones Urine Blood Urine Nitrite Ur Leukocyte Esterase COVID-19 (ARVIND) COVID-19 Clin Com 04/13/21 04/13/21 04/13/21 16:56 19:39 19:49 WBC RBC Hgb Hct MCV MCH MCHC RDW Plt Count MPV Immature Gran % (Auto) Neut % (Auto) Lymph % (Auto) [place] % (Auto) Eos % (Auto) Baso % (Auto) Lymph # (Auto) [place] # (Auto) Eos # (Auto) Baso # (Auto) Abs Immat Gran (auto) Absolute Neuts (auto) Absolute Nucleated RBC Nucleated RBC % (auto) Sodium Potassium Chloride Carbon Dioxide Anion Gap BUN Creatinine Estim Creat Clear Calc Estimated GFR Random Glucose Lactic Acid Lactic Acid Fup @ 2Hr 2.1 H* Lactic Acid Fup @ 4Hr Calcium Total Bilirubin AST ALT Alkaline Phosphatase Total Protein Albumin Lipase Urine Color YELLOW Urine Appearance CLEAR Urine pH 6.5 Ur Specific [place] 1.020 Urine Protein NEG Urine Glucose (UA) NEG Urine Ketones NEG Urine Blood NEG Urine Nitrite NEG Ur Leukocyte Esterase NEG COVID-19 (ARVIND) Negative COVID-19 Clin Com See Note 04/13/21 22:16 WBC RBC Hgb Hct MCV MCH MCHC RDW Plt Count MPV Immature Gran % (Auto) Neut % (Auto) Lymph % (Auto) [place] % (Auto) Eos % (Auto) Baso % (Auto) Lymph # (Auto) [place] # (Auto) Eos # (Auto) Baso # (Auto) Abs Immat Gran (auto) Absolute Neuts (auto) Absolute Nucleated RBC Nucleated RBC % (auto) Sodium Potassium Chloride Carbon Dioxide Anion Gap BUN Creatinine Estim Creat Clear Calc Estimated GFR Random Glucose Lactic Acid Lactic Acid Fup @ 2Hr Lactic Acid Fup @ 4Hr 1.3 Calcium Total Bilirubin AST ALT Alkaline Phosphatase Total Protein Albumin Lipase Urine Color Urine Appearance Urine pH Ur Specific [place] Urine Protein Urine Glucose (UA) Urine Ketones Urine Blood Urine Nitrite Ur Leukocyte Esterase COVID-19 (ARVIND) COVID-19 Clin Com <Chanelle Menezes PA-C - Last Filed: 04/14/21 09:36> Discharge Plan Discharge Patient Disposition: Home, Self-Care <Chanelle Menezes PA-C - Last Filed: 04/14/21 09:36> Discharge Diagnosis: acute appendicitis <Chanelle Menezes PA-C - Last Filed: 04/14/21 09:36> acute appendicitis <Wily Hickman MD - Last Filed: 04/20/21 11:51> Referrals: Branden Geller MD [Physician] - 1 Week Po,Andrew Suggs MD [Primary Care Provider] - 1 Week <Chanelle Menezes PA-C - Last Filed: 04/14/21 09:36> Discharge Medications: New oxycodone 5 mg tablet 5 mg PO Q4H PRN (Reason: pain (scale score 7-10)) Qty: 20 RF: 0 Continued acetaminophen 500 mg capsule 1,000 mg PO Q6H PRN (Reason: pain) 30 Days Qty: 90 RF: 0 melatonin 5 mg capsule 2 cap PO BEDTIME PRN (Reason: Insomnia) RF: 0 Discontinued oxycodone-acetaminophen 5-325 mg tablet 1 - 2 tab PO Q6H PRN (Reason: pain) Qty: 20 RF: 0 <Chanelle Menezes PA-C - Last Filed: 04/14/21 09:36> Discharge Orders: Discharge Order (Routine); Ordered 04/14/21 Ordered By: Chanelle Menezes <Chanelle Menezes PA-C - Last Filed: 04/14/21 09:36> Diet: advance to usual diet <Chanelle Menezes PA-C - Last Filed: 04/14/21 09:36> advance to usual diet <Wily Hickman MD - Last Filed: 04/20/21 11:51> Activity on Discharge: No heavy lifting <Chanelle Menezes PA-C - Last Filed: 04/14/21 09:36> No heavy lifting <Wily Hickman MD - Last Filed: 04/20/21 11:51> Stand Alone Forms: Patient Portal Discharge page <Chanelle Menezes PA-C - Last Filed: 04/14/21 09:36> Print Language: [place] <BARBARA Schumacher Last Filed: 04/14/21 09:36> Activity Restrictions/Additional Instructions: If the incision area is tender, you may apply an ice pack for short intervals (No more than 20 minutes on, followed by at least 20 minutes off). Do not apply heat. Do not use creams, lotions, or topical antibiotics unless instructed to do so by your surgeon. These can cause infection or allergic reaction. Ok to shower. Remove clear dressings 3 days following your procedure. You have steri strips (small white cloth strips) covering your incision- these will fall off ~1 week. No heavy lifting (>10lbs)! Call Your Doctor If: -Your temperature exceeds 101.5? F -You experience excessive pain or swelling -You have an unexpected reaction to medication -You have excessive bleeding -You experience continued vomiting/nausea -Your incision begins to separate -Your incision shows signs of infection such as increased redness, swelling, excessive pain, drainage (light blood or clear fluid is normal) or heat <Chanelle Menezes PA-C - Last Filed: 04/14/21 09:36> Care Plan Goals: Return to baseline health and gradual return to activity following recovery period. <Chanelle Menezes PA-C - Last Filed: 04/14/21 09:36> Health Concerns: acute appendicitis s/p lap appy <Chanelle Menezes PA-C - Last Filed: 04/14/21 09:36> Plan of Treatment: Discharge to home, gradual increase in activity. <Chanelle Menezes PA-C - Last Filed: 04/14/21 09:36> Assessment: 55 yo male POD #1 s/p lap appy doing well and surgically stable for discharge to home. <Chanelle Menezes PA-C - Last Filed: 04/14/21 09:36> Discharge Date/Time: 04/14/21 11:45 <Chanelle Menezes PA-C - Last Filed: 04/14/21 09:36>
--- NOTE | 2021-04-14 10:22 | MHC.CM.PN ---
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
--- NOTE | 2021-04-14 12:20 | MHC.CM.PN ---
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 PT DOES NOT HAVE A HCP HOWEVER PT DISCHARGING AT TIME OF ASSESSMENT AND DECLINES. D/C PLAN: HOME SELF-CARE W/FOLLOW-UP W/DR PARRISH. [facility] FOR TRANSPORT.
== END 2021-04-14 11:45 | disposition home or self-care (01) | DRG 234 ==
LOC: HO.ED 18:58 → HO.EDOVER 20:08 → HO.S3 21:11
PROVIDERS: Admitting Provider Surgery; Emergency Provider Internal Medicine; PCP Internal Medicine; Visit Provider Surgery
PROC: 0DTJ4ZZ Resection of Appendix, Percutaneous Endoscopic Approach (ICD-10-PCS; CPT 44970; principal; 2021-04-13 08:30)
DX: K35.30 Acute appendicitis with localized peritonitis, without perforation or gangrene (principal); F41.9 Anxiety disorder, unspecified; J45.909 Unspecified asthma, uncomplicated; Z20.822 Contact with and (suspected) exposure to COVID-19; Z79.899 Other long term (current) drug therapy
CPT/HCPCS: 36415; 74177; 80053; 81003; 83605; 83690; 85025; 87040; 87635; 88304; 96361; 96365; 96375; 96376; 99024; 99283; 99285; J1100; J1885; J2250; J2270; J2405; J2543; J3010; Q9967

== ENCOUNTER → 2021-04-21 13:25 | Outpatient (BNVA) | payer OTHER, SELFPAY | PROVIDERS: PCP Internal Medicine; Referring Provider Internal Medicine; Visit Provider Surgery | DX: Z48.815 Encounter for surgical aftercare following surgery on the digestive system (principal); Z87.19 Personal history of other diseases of the digestive system | CPT/HCPCS: 99212 ==

== ENCOUNTER 2021-07-13 20:10 | Emergency (ER) | payer OTHER, SELFPAY ==
--- NOTE | ~2021-07-13 | CT_ITS ---
EXAMINATION: CT HEAD WITHOUT CONTRAST CLINICAL INFORMATION: Headache COMPARISON: None TECHNIQUE: Contiguous axial imaging was performed from the skull base to vertex without intravenous administration of contrast. This CT examination was performed using dose optimization techniques as appropriate, variously including the following: *Automated exposure control *Adjustment of mA and/or kV according to patient size (this includes techniques or standardized protocols for targeted exams where dose is matched to indication/reason for exam; i.e. extremities or head) *Use of iterative reconstruction technique DLP: 712 mGy-cm FINDINGS: There is no evidence of acute intracranial hemorrhage or territorial infarction. No abnormal mass effect or midline shift is seen. Schaffer to white matter differentiation is well preserved. No extra-axial fluid collections are identified. The ventricles are normal in size. There is no abnormal attenuation within the brain parenchyma. The osseous structures and soft tissues are normal. The mastoid air cells and visualized portions of the paranasal sinuses are well aerated. CT/CT head/brain wo con IMPRESSION: No acute intracranial pathology.
[2021-07-13 21:34] VITALS: BP 139/96; PULSE 88; RESP 16; TEMP 36.6; O2SAT 96; BMI 27.3
--- NOTE | 2021-07-14 00:19 | ED_ITS ---
HPI - Headache General Chief Complaint: Headache Stated Complaint: Headache Time Seen by Provider: 07/14/21 00:14 History of Present Illness HPI Narrative: 55-year-old male presents today with having headache over the right side. Getting worse over last 24 hours. There is no focal weakness. No fever no chills. No photophobia. Patient from home. It is throbbing. Describes 03/17. Worsen with loud noise. No history of similar headaches in the past. No history of migraine. positive nausea no vomiting. Related Data Home Medications Medication Instructions Recorded Confirmed melatonin 5 mg capsule 2 cap PO BEDTIME PRN 01/15/21 01/15/21 Previous Rx's Medication Instructions Recorded acetaminophen 500 mg capsule 1,000 mg PO Q6H PRN 30 Days #90 cap 01/21/21 oxycodone 5 mg tablet 5 mg PO Q4H PRN #20 tab 04/14/21 ondansetron 4 mg disintegrating 4 mg PO TID PRN 5 Days #10 tab 07/14/21 tablet ondansetron HCl 4 mg tablet 4 mg PO Q8H PRN #10 tab 07/14/21 (Zofran) Allergies Allergy/AdvReac Type Severity Reaction Status Date / Time No Known Allergies Allergy Verified 01/26/21 10:19 [No Known Allergies*] Review of Systems Review of Systems: Positive right-sided headache no vomiting, positive nausea no focal weakness Yes all other systems are reviewed and are negative [facility] Past Medical History Attestation statement: The following information was validated with the patient. Medical History Anxiety Asthma Surgical History H/O colonoscopy History of inguinal hernia repair Hx of hand surgery Family History Family History Father No problems noted. Mother No problems noted. Brother No problems noted. Sister No problems noted. Son No problems noted. Daughter No problems noted. Other Family history non-contributory Social History Social History Household Members: Family Housing: House Do you presently have visiting nurse or other home services: No Patient Tobacco Use Status: Former Tobacco user Advance Directives: No service: No Current occupational status: unemployed and disabled Current occupation: left handed Physical Exam Vital Signs: Vital Signs: Last Vital Signs Temp 97.6 F 07/14/21 00:52 Pulse 63 07/14/21 00:52 Resp 13 07/14/21 00:52 BP 135/77 07/14/21 00:52 Pulse Ox 96 07/14/21 00:52 BMI result Body Mass Index 27.3 Appearance: Alert. Oriented X3. No acute distress. Eyes: Pupils equal, round and reactive to light. ENT: Pharynx normal. Neck: Normal inspection. Neck supple. No lymph nodes noted. No crepitus CVS: Normal heart rate and rhythm. Pulses normal. Normal S1 and S2 Respiratory: No respiratory distress. Breath sounds normal. No Wheezing. No rales Abdomen: Soft and nontender. No rigidity. No distention. good BS x4 Skin: Skin warm and dry. Normal skin color. Normal skin turgor. Extremities: No lower extremity edema. Neurovascular intact to all extremities. No Lacerations. No Rash Neuro: Oriented X 3. No motor deficit. No sensory deficit. Moving all ex termities. No slurred speech MDM - Headache MDM Narrative Medical decision making narrative: Patient's intra-ocular pressure was checked it was 11 on the right 12 on the left. No evidence for glaucoma. Neurologically intact. CT scan of the head was negative for any acute evidence of bleeding. Electrolytes are pending. Sed rate are pending. Will give treatment for migraine. Will monitor carefully. Patient's symptom improved. Sed rate was 6. No evidence for temporal arteritis. In stable condition. Will discharge home Medical Records Attestation: I reviewed the patient's medical records. Lab Data Result diagrams: 07/14/21 00:57 07/14/21 00:57 Labs: Lab Results 07/14/21 07/14/21 07/14/21 Range/Units 00:57 00:57 00:57 WBC 7.4 (4.8-10.8) X10*3/uL RBC 5.12 (4.60-5.80) X10*6/uL Hgb 14.5 (14.0-18.0) g/dl Hct 43.9 (42.0-52.0) % MCV 85.7 (80.0-98.0) fL MCH 28.3 (27.0-33.0) pg MCHC 33.0 (31.0-36.0) g/dl RDW 13.7 (11.0-16.0) % Plt Count 229 (160-400) X10*3/uL MPV 10.0 (9.4-12.4) fL Immature Gran % (Auto) 0.3 (0.0-0.4) % Neut % (Auto) 54.2 (45-73) % Lymph % (Auto) 32.8 (20-40) % [place] % (Auto) 10.5 (2-11) % Eos % (Auto) 1.9 (0-4) % Baso % (Auto) 0.3 (0-2) % Lymph # (Auto) 2.4 (1.2-4.9) X10*3/uL [place] # (Auto) 0.8 (0.1-1.2) X10*3/uL Eos # (Auto) 0.1 (0.0-0.4) X10*3/uL Baso # (Auto) 0.0 (0.0-0.2) X10*3/uL Abs Immat Gran (auto) 0.02 (0.00-0.03) X10*3/uL Absolute Neuts (auto) 4.0 (2.0-8.3) x10*3/uL Absolute Nucleated RBC 0.000 (0.0-0.012) X10*3/uL Nucleated RBC % (auto) 0.0 (0.0-0.2) /100WBC ESR 6 (0-15) MM/HR Sodium 142 (135-145) mmol/L Potassium 4.9 (3.3-5.1) mmol/L Chloride 107 (96-108) mmol/L Carbon Dioxide 26 (22-29) mmol/L Anion Gap 14 (12-20) BUN 20 H (9-16) mg/dL Creatinine 0.92 (0.5-1.4) mg/dL Estim Creat Clear Calc 90.5 Estimated GFR > 60 Random Glucose 92 (60-115) mg/dL Calcium 9.4 (8.4-10.2) mg/dL Discharge Plan Discharge Clinical Impression: Headache, Migraine Patient Disposition: Home, Self-Care Instructions: Acute Headache (ED) Prescriptions: New ondansetron HCl [Zofran] 4 mg tablet 4 mg PO Q8H PRN (Reason: nausea and vomiting) Qty: 10 RF: 0 ondansetron 4 mg tablet,disintegrating 4 mg PO TID PRN (Reason: nausea and vomiting) 5 Days Qty: 10 RF: 0 No Action acetaminophen 500 mg capsule 1,000 mg PO Q6H PRN (Reason: pain) 30 Days Qty: 90 RF: 0 melatonin 5 mg capsule 2 cap PO BEDTIME PRN (Reason: Insomnia) RF: 0 oxycodone 5 mg tablet 5 mg PO Q4H PRN (Reason: pain (scale score 7-10)) Qty: 20 RF: 0 Referrals: Po,Andrew Suggs MD [Primary Care Provider] - 2 days
[2021-07-14] MEDS: diphenhydrAMINE HCL 50 MG/ML VIAL 25 MG IVPUSH (00:26)
[2021-07-14] MEDS: Ketorolac Tromethamine 30 MG/ML VIAL IVPUSH (00:27)
[2021-07-14] MEDS: Prochlorperazine Edisylate 10 MG/2 ML VIAL IVPUSH (00:27)
[2021-07-14 00:52] VITALS: BP 135/77; PULSE 63; RESP 13; TEMP 36.4; O2SAT 96
[2021-07-14 01:08] LABS: MANUAL DIFF FLAG NO
[2021-07-14 01:09] LABS: Basophils Percent Auto 0.3 % (0-2); Eosinophils Absolute Auto 0.1 X10*3/uL (0.0-0.4); Eosinophils Percent Auto 1.9 % (0-4); Hematocrit 43.9 % (42.0-52.0); Hemoglobin 14.5 g/dl (14.0-18.0); Imm Gran Abs Auto 0.02 X10*3/uL (0.00-0.03); Imm Gran Pct Auto 0.3 % (0.0-0.4); Lymphocytes Absolute Auto 2.4 X10*3/uL (1.2-4.9); Lymphocytes Percent Auto 32.8 % (20-40); Mean Corpuscular Hemoglobin 28.3 pg (27.0-33.0); Mean Corpuscular Volume 85.7 fL (80.0-98.0); Monocytes Absolute Auto 0.8 X10*3/uL (0.1-1.2); Monocytes Percent Auto 10.5 % (2-11); Neutrophils Percent Auto 54.2 % (45-73); Platelet Count 229 X10*3/uL (160-400); Red Blood Count 5.12 X10*6/uL (4.60-5.80); Red Cell Distribution Width 13.7 % (11.0-16.0); White Blood Count 7.4 X10*3/uL (4.8-10.8)
[2021-07-14 01:21] LABS: Anion Gap 14 (12-20); Blood Urea Nitrogen 20 mg/dL (9-16); Calcium 9.4 mg/dL (8.4-10.2); Carbon Dioxide 26 mmol/L (22-29); Chloride 107 mmol/L (96-108); Creatinine Clr Calc Pharmacy 90.5; Estimated Glomerular Filt Rate > 60; Glucose Random 92 mg/dL (60-115); Potassium 4.9 mmol/L (3.3-5.1); Sodium 142 mmol/L (135-145)
[2021-07-14 01:45] LABS: Erythrocyte Sedimentation Rate 6 MM/HR (0-15)
[2021-07-14 02:03] VITALS: BP 139/93; PULSE 77; RESP 14; TEMP 36.4; O2SAT 96
== END 2021-07-14 02:16 | disposition home or self-care (01) ==
PROVIDERS: Emergency Provider Emergency Medicine Emergency Medical Services; PCP Internal Medicine
DX: G43.909 Migraine, unspecified, not intractable, without status migrainosus (principal); I10 Essential (primary) hypertension
CPT/HCPCS: 36415; 70450; 80048; 85025; 85652; 96374; 96375; 99284; J1200; J1885

== ENCOUNTER 2022-04-30 17:39 | Emergency (ER) | payer OTHER, MEDICARE, MEDICAID, SELFPAY ==
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
[2022-04-30 17:46] VITALS: BP 148/97; PULSE 74; O2SAT 98; BMI 27.3
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
[2022-04-30 18:07] LABS: MANUAL DIFF FLAG NO
[2022-04-30 18:10] LABS: Basophils Percent Auto 0.2 % (0-2); Eosinophils Absolute Auto 0.1 X10*3/uL (0.0-0.4); Eosinophils Percent Auto 1.7 % (0-4); Hematocrit 42.5 % (42.0-52.0); Hemoglobin 14.2 g/dl (14.0-18.0); Imm Gran Abs Auto 0.02 X10*3/uL (0.00-0.03); Imm Gran Pct Auto 0.2 % (0.0-0.4); Lymphocytes Absolute Auto 2.4 X10*3/uL (1.2-4.9); Mean Corpuscular HGB Conc 33.4 g/dl (31.0-36.0); Mean Corpuscular Hemoglobin 28.1 pg (27.0-33.0); Mean Platelet Volume 9.8 fL (9.4-12.4); Monocytes Absolute Auto 0.7 X10*3/uL (0.1-1.2); Monocytes Percent Auto 7.7 % (2-11); Neutrophils Absolute Auto 5.1 x10*3/uL (2.0-8.3); Neutrophils Percent Auto 61.2 % (45-73); Platelet Count 253 X10*3/uL (160-400); Red Blood Count 5.06 X10*6/uL (4.60-5.80); Red Cell Distribution Width 13.6 % (11.0-16.0); White Blood Count 8.4 X10*3/uL (4.8-10.8)
[2022-04-30 18:24] LABS: Alanine Aminotransferase 24 U/L (0-40); Alkaline Phosphatase 126 U/L (39-117); Anion Gap 16 (12-20); Aspartate Amino Transferase 22 U/L (5-37); Bilirubin Total 0.4 mg/dL (0.0-1.0); Blood Urea Nitrogen 19 mg/dL (9-16); Calcium 9.3 mg/dL (8.4-10.2); Carbon Dioxide 25 mmol/L (22-29); Chloride 105 mmol/L (96-108); Creatinine Clr Calc Pharmacy 85.7; Estimated Glomerular Filt Rate > 60; Glucose Random 109 mg/dL (60-115); Sodium 142 mmol/L (135-145); Total Protein 6.8 g/dL (6.5-8.0)
[2022-04-30 18:40] VITALS: BP 132/76; PULSE 71; RESP 14; O2SAT 99
[2022-04-30 19:17] LABS: B Type Natriuretic Peptide < 10 pg/mL (<100); Troponin-I High Sensitivity 12.4 ng/L (<3.5-35.0)
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
[2022-04-30 21:11] LABS: Troponin-I High Sensitivity 11.8 ng/L (<3.5-35.0)
[2022-04-30] MEDS: Lidocaine 4 % Patch ADH..PATCH 1 PATCH TRANSDERMA (21:32)
[2022-04-30] MEDS: Ketorolac Tromethamine 15 MG/ML VIAL 30 MG IM (21:33)
== END 2022-04-30 22:00 | disposition home or self-care (01) ==
PROVIDERS: Physician Assistant; Emergency Provider Student in an Organized Health Care Education/Training Program
DX: S13.4XXA Sprain of ligaments of cervical spine, initial encounter (principal); V43.52XA Car driver injured in collision with other type car in traffic accident, initial encounter; M54.2 Cervicalgia; R06.02 Shortness of breath; I10 Essential (primary) hypertension; Y93.89 Activity, other specified; Y92.414 Local residential or business street as the place of occurrence of the external cause; Y99.9 Unspecified external cause status; Z79.899 Other long term (current) drug therapy
CPT/HCPCS: 36415; 70450; 71250; 72125; 74176; 80053; 83735; 83880; 84484; 85025; 93005; 96372; 99284; 99285; J1885

== ENCOUNTER 2022-08-11 19:24 | Emergency (ER) | payer MEDICARE, MEDICAID, SELFPAY ==
--- NOTE | ~2022-08-11 | XR_ITS ---
EXAMINATION: XR HAND, RIGHT CLINICAL INFORMATION: Drill injury COMPARISON: None TECHNIQUE: PA, lateral, and oblique views of the right hand. FINDINGS: The bones and soft tissues are normal. No fracture. Alignment is anatomic. Joint spaces are maintained. No erosions or soft tissue calcifications. XR/XR hand RT 2V IMPRESSION: Unremarkable right hand.
[2022-08-11 19:56] VITALS: BP 153/95; PULSE 76; RESP 20; TEMP 36.6; O2SAT 98; BMI 28.1
--- NOTE | 2022-08-11 19:56 | ED.UPPEXIN ---
HPI - Extremity Injury (Upper) General Chief Complaint: Wound/Laceration <NINA Zaidi Last Filed: 08/11/22 20:02> Stated Complaint: drill/ hand injury <NINA Zaidi Last Filed: 08/11/22 20:02> Time Seen by Provider: 08/11/22 21:21 <NINA Zaidi Last Filed: 08/11/22 20:02> Source: patient <NINA Taveras Last Filed: 08/11/22 22:10> Mode of arrival: ambulatory <NINA Taveras Last Filed: 08/11/22 22:10> Limitations: no limitations <NINA Taveras Last Filed: 08/11/22 22:10> History of Present Illness HPI narrative: This is a 56-year-old male history of hypertension, migraines presenting to the emergency department with c/o 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 He does not think he is up-to-date on his tetanus shot. Denies pain, numbness, tingling, fevers, chills, chest pain, shortness of breath. Patient tells me he is able to move all fingers, wrists without difficulty. <NINA Taveras Last Filed: 08/11/22 22:10> Related Data Home Medications: Home Medications Medication Instructions Recorded Confirmed melatonin 5 mg capsule 2 cap PO BEDTIME PRN Insomnia 01/15/21 08/13/21 Previous Rx's Medication Instructions Recorded acetaminophen 500 mg capsule 1,000 mg PO Q6H PRN pain 30 days 01/21/21 #90 caps oxycodone 5 mg tablet 5 mg PO Q4H PRN pain (scale score 04/14/21 7-10) #20 tabs ondansetron HCl 4 mg tablet 4 mg PO Q8H PRN nausea and 07/14/21 (Zofran) vomiting #10 tabs imgwqbuzvo-dgxqcwkdqgwyu-zdbhzijg 1 cap PO Q6H PRN pain 4 days #16 07/16/21 50 mg-325 mg-40 mg capsule caps lisinopril 5 mg tablet 5 mg PO DAILY 30 days #30 tabs 09/10/21 cyclobenzaprine 10 mg tablet 10 mg PO BEDTIME PRN muscle spasm 04/30/22 #7 tabs lidocaine 5 % topical patch 1 patch topical DAILY PRN pain #15 04/30/22 ea cephalexin 500 mg tablet 500 mg PO Q6H 10 days #40 tabs 08/11/22 doxycycline hyclate 100 mg capsule 100 mg PO BID 10 days #20 caps 08/11/22 <NINA Zaidi Last Filed: 08/11/22 20:02> Allergies/Adverse Reactions: Allergies Allergy/AdvReac Type Severity Reaction Status Date / Time No Known Allergies Allergy Verified 08/11/22 20:00 [No Known Allergies*] <NINA Zaidi Last Filed: 08/11/22 20:02> Review of Systems Review of Systems: Constitutional : No Weight loss, No Fever, No Chills, No Fatigue, No Malaise ENT/Mouth : No sore throat, No Rhinorrhea Eyes: No Eye Pain, No Swelling, No Redness Cardiovascular : No Chest Pain, No SOB, No Dyspnea on Exertion, No Orthopnea, No Edema, No Palpitations Respiratory : No Cough, No Sputum, No Wheezing Gastrointestinal : No Nausea, No Vomiting, No Diarrhea, No Constipation, No abdominal Pain, No Hematochezia, No Melena Genitourinary : No Dysuria, No Urinary Frequency, No Hematuria, Musculoskeletal : No joint pain, No Myalgias, No Joint Swelling Skin : No Skin Lesions, No rash, + puncture wound Neuro : No Weakness, No Numbness, No Dizziness, No Headache Psych : No Anxiety/Panic, No Depression All other systems reviewed and are negative <NINA Taveras Last Filed: 08/11/22 22:10> Yes all other systems are reviewed and are negative <NINA Taveras Last Filed: 08/11/22 22:10> [facility] Past Medical History Attestation statement: The following information was validated with the patient. <NINA Taveras Last Filed: 08/11/22 22:10> Source: old records reviewed and nursing notes reviewed <NINA Taveras Last Filed: 08/11/22 22:10> Medical History: Medical History Anxiety Asthma <NINA Zaidi - Last Filed: 08/11/22 20:02> Surgical History: Surgical History H/O colonoscopy History of inguinal hernia repair Hx of hand surgery <NINA Zaidi - Last Filed: 08/11/22 20:02> Family History Family History: Family History Father No problems noted. Mother No problems noted. Brother No problems noted. Sister No problems noted. Son No problems noted. Daughter No problems noted. Other Family history non-contributory <NINA Zaidi - Last Filed: 08/11/22 20:02> Social History Social History: Social History Household Members: Family Housing: House Do you presently have visiting nurse or other home services: No Patient Tobacco Use Status: Former Tobacco user e-Cigarette/Vaping Use: Never Used Second Hand Smoke Exposure: No Advance Directives: No Advance Directives Information Provided: Yes service: No Current occupational status: unemployed and disabled Current occupation: left handed <NINA Zaidi - Last Filed: 08/11/22 20:02> Physical Exam Vital Signs: Vital Signs: Last Vital Signs Temp 97.9 F 08/11/22 19:56 Pulse 76 08/11/22 19:56 Resp 20 08/11/22 19:56 BP 153/95 H 08/11/22 19:56 Pulse Ox 98 08/11/22 19:56 O2 Del Method 08/11/22 19:56 BMI result Body Mass Index 28.1 <NINA Zaidi - Last Filed: 08/11/22 20:02> Vital Signs: Last Vital Signs Temp 97.9 F 08/11/22 19:56 Pulse 76 08/11/22 19:56 Resp 20 08/11/22 19:56 BP 153/95 H 08/11/22 19:56 Pulse Ox 98 08/11/22 19:56 O2 Del Method 08/11/22 19:56 BMI result Body Mass Index 28.1 vss <NINA Taveras - Last Filed: 08/11/22 22:10> Appearance: Alert.? Oriented X3.? No acute distress.? Head: Normocephalic, atraumatic, no step-offs or deformities Eyes: Pupils equal, round and reactive to light.? CVS: Normal heart rate and rhythm.? Pulses normal.? Respiratory: No respiratory distress.? Breath sounds normal.? Abdomen: Soft and nontender.? Skin: Skin warm and dry.? Normal skin color.? Normal skin turgor.?+ small puncture wound to palmar aspect right hand at 1st MCP. 2+ radial pulses equal bilateral. Normal capillary refill to bilateral upper extremities. Normal sensation. No signs of foreign body within puncture site. Extremities: No lower extremity edema.? No calf ttp. 5/5 strength to bilateral upper and lower extremities Back: No midline tenderness, no C-spine tenderness, full range of motion, no CVA tenderness bilaterally Neuro: Oriented X 3.? No motor deficit.? No sensory deficit. 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 Tetanus unknown Area contaminated, small puncture wound to palmar aspect right hand at 1st MCP. No active bleeding, NV intact Patient will be sent to [facility] for wound irrigation XR ordered to r/o FB <NINA Zaidi - Last Filed: 08/11/22 20:02> Reevaluation(s) Reevaluation #1: X-ray negative. At this time patient will be discharged home advised to follow-up with hand surgeon or PCP. Will discharge home on doxycycline and Keflex. Tetanus shot given. Educated patient on diagnosis and treatment plan, answered all question, patient verbalizes understanding. At this time patient will be discharged home, advised to return with new or worsening symptoms. Educated on worrisome signs and symptoms and when to return. At this time I feel comfortable discharge home. <NINA Taveras - Last Filed: 08/11/22 22:10> Time: 22:09 <NINA Taveras - Last Filed: 08/11/22 22:10> Medications Administered Discontinued Medications Generic Name Dose Route Start Last Admin Trade Name Freq PRN Reason Stop Dose Admin Diphtheria/Tetanus/Acell Pertussis 0.5 ml 08/11/22 19:59 08/11/22 21:50 Diphth,Pertus(Acell),Tet Adult 0.5 Ml Syringe IM 08/11/22 20:00 0.5 ml .ONCE ONE Administration <NINA Zaidi - Last Filed: 08/11/22 20:02> Medications Administered Discontinued Medications Generic Name Dose Route Start Last Admin Trade Name Freq PRN Reason Stop Dose Admin Diphtheria/Tetanus/Acell Pertussis 0.5 ml 08/11/22 19:59 08/11/22 21:50 Diphth,Pertus(Acell),Tet Adult 0.5 Ml Syringe IM 08/11/22 20:00 0.5 ml .ONCE ONE Administration <NINA Taveras - Last Filed: 08/11/22 22:10> Medical Decision Making Medical Decision Making MDM Narrative: 56-year-old male presents with puncture wound to right hand. Patient left hand dominant. Unsure of tetanus status. Physical exam small puncture wound to palmar aspect right hand at 1st MCP. 2+ radial pulses equal bilateral. Normal capillary refill to bilateral upper extremities. Normal sensation. No signs of foreign body within puncture site. Likely puncture wound. Unlikely fracture, dislocation, neurovascular compromise. Area was cleaned and irrigated. Tetanus shot will be given. X-ray was obtained to rule out fracture and dislocation. No signs of neurovascular compromise. <NINA Taveras - Last Filed: 08/11/22 22:10> Differential Diagnosis Differential Diagnoses: The differential diagnosis associated with the presentation includes <NINA Taveras - Last Filed: 08/11/22 22:10> Likely puncture wound. Unlikely fracture, dislocation, neurovascular compromise. <NINA Taveras - Last Filed: 08/11/22 22:10> Independent Interpretation I performed an independent interpretation of an: Plain X-Ray (XR/XR hand RT 2V IMPRESSION: Unremarkable right hand.) <NINA Taveras - Last Filed: 08/11/22 22:10> Radiology Impression Discussion of test interpretation with radiology: I have reviewed the radiologist's reading. <NINA Taveras - Last Filed: 08/11/22 22:10> Core Measures AMI core measures followed: Yes <NINA Taveras - Last Filed: 08/11/22 22:10> Measure exclusions: not indicated <NINA Taveras - Last Filed: 08/11/22 22:10> Critical Care Time Critical Care Time Critical Care Time: No <NINA Taveras Last Filed: 08/11/22 22:10> Discharge Plan Discharge Clinical Impression: Puncture wound <NINA Zaidi Last Filed: 08/11/22 20:02> Patient Disposition: Home, Self-Care <NINA Zaidi Last Filed: 08/11/22 20:02> Additional Instructions: Take your medications as prescribed. If you were prescribed antibiotics today, it is important that you take your medication to their entirety, do not skip any doses, do not finish them early. Follow-up with your primary care provider this week. Return to the emergency department with new or worsening symptoms. Such as fevers, chills, chest pain, shortness of breath, nausea, vomiting, dizziness, headache, vision changes, lethargy In case of emergency call 911 XR/XR hand RT 2V IMPRESSION: Unremarkable right hand. <NINA Zaidi Last Filed: 08/11/22 20:02> Prescriptions: New cephalexin 500 mg tablet 500 mg PO Q6H 10 Days Qty: 40 0RF doxycycline hyclate 100 mg capsule 100 mg PO BID 10 Days Qty: 20 0RF No Action acetaminophen 500 mg capsule 1,000 mg PO Q6H PRN (Reason: pain) 30 Days Qty: 90 0RF lisinopril 5 mg tablet 5 mg PO DAILY 30 Days Qty: 30 2RF melatonin 5 mg capsule 2 cap PO BEDTIME PRN (Reason: Insomnia) oxycodone 5 mg tablet 5 mg PO Q4H PRN (Reason: pain (scale score 7-10)) Qty: 20 0RF cyclobenzaprine 10 mg tablet 10 mg PO BEDTIME PRN (Reason: muscle spasm) Qty: 7 0RF lidocaine 5 % adhesive patch,medicated 1 patch topical DAILY PRN (Reason: pain) Qty: 15 0RF Rx Instructions: leave on most painful area for up to 12 hrs ondansetron HCl [Zofran] 4 mg tablet 4 mg PO Q8H PRN (Reason: nausea and vomiting) Qty: 10 0RF gxvzmdkhev-dpfnzdwffkvcd-vysm 50-325-40 mg capsule 1 cap PO Q6H PRN (Reason: pain) 4 Days Qty: 16 0RF <NINA Zaidi - Last Filed: 08/11/22 20:02> Referrals: Physician,Latoya J [Primary Care Provider] - 2 days [facility] [Provider Group] - 2 days <NINA Zaidi - Last Filed: 08/11/22 20:02> Stand Alone Forms: Work/School Release <NINA Zaidi - Last Filed: 08/11/22 20:02>
[2022-08-11] MEDS: Diphth,Pertus(ACell),Tet Adult 0.5 ML SYRINGE IM (21:50)
== END 2022-08-11 22:28 | disposition home or self-care (01) ==
PROVIDERS: Emergency Provider Internal Medicine
DX: S61.431A Puncture wound without foreign body of right hand, initial encounter (principal); W29.8XXA Contact with other powered hand tools and household machinery, initial encounter; Y93.89 Activity, other specified; Y92.9 Unspecified place or not applicable; Y99.9 Unspecified external cause status; Z23 Encounter for immunization
CPT/HCPCS: 73120; 90471; 90715; 99282; 99284

== ENCOUNTER 2022-08-30 08:34 | Outpatient (REF) | payer MEDICARE, MEDICAID, SELFPAY ==
[2022-08-30 09:10] LABS: COVID-19 Test Negative (Negative); IDNOW Serial# BCCEAD1C
== END 2022-08-30 08:35 | disposition home or self-care (01) ==
LOC: HO.LAB 08:34
PROVIDERS: Visit Provider Internal Medicine
DX: Z20.822 Contact with and (suspected) exposure to COVID-19 (principal)
CPT/HCPCS: 87635; C9803

== ENCOUNTER 2022-11-26 08:58 | Emergency (ER) | payer MEDICARE, MEDICAID, SELFPAY ==
--- NOTE | ~2022-11-26 | XR_ITS ---
EXAMINATION: XR CHEST CLINICAL INFORMATION: Off COMPARISON: 05/17/2020 TECHNIQUE: Frontal view of the chest was obtained. FINDINGS: The lungs are well expanded. There is no focal consolidation, edema, or effusion. No pneumothorax. The cardiomediastinal silhouette is within normal limits. No acute osseous abnormality. XR/XR chest 1V IMPRESSION: No acute pulmonary disease.
[2022-11-26 08:59] VITALS: BP 140/94; PULSE 90; RESP 18; TEMP 36.7; O2SAT 97; BMI 28.1
[2022-11-26 09:42] LABS: COVID-19 Test Negative (Negative); IDNOW Serial# BCCEAD1C
[2022-11-26 09:56] LABS: IDNOW Serial# 9DB6401D; Influenza A Negative (Negative); Influenza B2 Negative (Negative)
--- NOTE | 2022-11-26 10:57 | ED_ITS ---
HPI - General Adult General Chief complaint: Upper Respiratory Symptoms Stated complaint: Chest Discomfort Due To Cough Time Seen by Provider: 11/26/22 10:12 Source: patient Mode of arrival: ambulatory Limitations: no limitations History of Present Illness HPI narrative: 56-year-old male history of hypertension presents to the ED fever, night sweats, chills, coughing with yellow phlegm, the past 2 days. Patient states chest pain only when he coughs. Patient states his friend also have similar symptoms. Patient states history of asthma and has been using his albuterol pump which he states is almost finished. Related Data Home Medications Medication Instructions Recorded Confirmed melatonin 5 mg capsule 2 cap PO BEDTIME PRN Insomnia 01/15/21 08/13/21 Previous Rx's Medication Instructions Recorded acetaminophen 500 mg capsule 1,000 mg PO Q6H PRN pain 30 days 01/21/21 #90 caps oxycodone 5 mg tablet 5 mg PO Q4H PRN pain (scale score 04/14/21 7-10) #20 tabs ondansetron HCl 4 mg tablet 4 mg PO Q8H PRN nausea and 07/14/21 (Zofran) vomiting #10 tabs pvihozmfga-wgnauozzecint-bnonobcv 1 cap PO Q6H PRN pain 4 days #16 07/16/21 50 mg-325 mg-40 mg capsule caps lisinopril 5 mg tablet 5 mg PO DAILY 30 days #30 tabs 09/10/21 cyclobenzaprine 10 mg tablet 10 mg PO BEDTIME PRN muscle spasm 04/30/22 #7 tabs lidocaine 5 % topical patch 1 patch topical DAILY PRN pain #15 04/30/22 ea cephalexin 500 mg tablet 500 mg PO Q6H 10 days #40 tabs 08/11/22 doxycycline hyclate 100 mg capsule 100 mg PO BID 10 days #20 caps 08/11/22 albuterol sulfate 90 mcg/actuation 2 puff inhalation Q4-6H PRN 11/26/22 aerosol inhaler shortness of breath or wheezing #8.5 grams azithromycin 250 mg tablet See Rx Instructions PO .COMPLEX #6 11/26/22 tabs benzonatate 100 mg capsule 100 mg PO TID PRN cough 5 days #15 11/26/22 caps prednisone 20 mg tablet 40 mg PO DAILY 5 days #10 tabs 11/26/22 Allergies Allergy/AdvReac Type Severity Reaction Status Date / Time No Known Allergies Allergy Verified 08/11/22 20:00 [No Known Allergies*] Review of Systems Review of Systems: Coughing, yellow phlegm, fever, chills, night sweats, chest pain only when he c oughs. Yes all other systems are reviewed and are negative [facility] Past Medical History Medical History Anxiety Asthma Surgical History H/O colonoscopy History of inguinal hernia repair Hx of hand surgery Family History Family History Father No problems noted. Mother No problems noted. Brother No problems noted. Sister No problems noted. Son No problems noted. Daughter No problems noted. Other Family history non-contributory Social History Social History Household Members: Family Housing: House Do you presently have visiting nurse or other home services: No Patient Tobacco Use Status: Former Tobacco user e-Cigarette/Vaping Use: Never Used Second Hand Smoke Exposure: No Advance Directives: No Advance Directives Information Provided: Yes service: No Current occupational status: unemployed and disabled Current occupation: left handed Physical Exam ED Vital Signs: Vital Signs - 24 hr 11/26/22 08:59 Temperature 98.1 F Pulse Rate 90 Respiratory Rate 18 Blood Pressure 140/94 H Pulse Oximetry 97 Oxygen Delivery Method Room Air BMI result Body Mass Index 28.1 Const General: cooperative, healthy appearing, comfortable, no acute distress, well developed, alert, awake and Physically active Orientation/consciousness: oriented to person, oriented to place, oriented to time and patient oriented x3 HENMT Head: Yes normal to inspection, Yes No palpable skull fracture present, Yes normocephalic, Yes atraumatic and No abrasion Eyes General: appearance normal, both eyes and all related structures Neck Neck: Yes normal visual inspection, Yes full ROM, Yes no lymphadenopathy, Yes no meningeal signs, Yes trachea midline, Yes supple, No anterior neck swelling and No tender Chest Chest palpation & inspection: normal inspection of the chest and normal palpation of entire chest wall Resp Effort & Inspection: normal respiratory effort and able to speak in complete sentences Auscultation: clear to auscultation bilaterally Cardio Jugular venous distension: no JVD Heart sounds: S1 normal heart sound present and S2 normal heart sound present GI Inspection: Yes normal to inspection and No abdominal wall ecchymosis Palpation (GI): Soft to palpation, not firm, nontender, no guarding and not rigid General: No CVA tenderness and Yes no CVA tenderness Back/Spine/Pelvis Back: no CVA tenderness, No CVA tenderness and No back tenderness Skin General skin exam: no rashes or lesions noted, elasticity normal and turgor normal Neuro General: oriented to person, oriented to place, oriented to time, patient oriented x3, gait normal, tone normal, moves all extremities, Normal light touch and pain sensation, no meningeal signs, no focal motor deficits, CN's II-XI intact bilaterally and normal sensation to monofilament Extrem Other: Bilateral lower extremity negative for swelling, pitting edema, or calf tenderness. General: Yes normal to inspection and Yes full ROM Psych Appearance: grossly normal, well kempt and not disheveled Course Course Course Narrative: Patient well-appearing. X-ray COVID influenza ordered. Reevaluation(s) Reevaluation #1: Not suspecting cardiac etiology. Patient having URI symptoms. With yellow phlegm and history of asthma which has bronchitis and discharged with azithromycin albuterol inhaler and Tessalon Perles Time: 11:07 Medical Decision Making Medical Decision Making MDM Narrative: 56-year-old male with URI symptoms. Patient history of asthma with UR symptoms will be treated as bronchitis and given albuterol inhaler, azithromycin, and Tessalon Perles. Patient presently has no chest pain because he is not coughing. Not suspecting CH,F myocardial infarction, or pulmonary embolus. Differential Diagnosis Differential Diagnoses: The differential diagnosis associated with the presentation includes (Pneumonia, COVID, influenza,) Admission/Observation Consideration of admission/observation: Escalation of care including admission/observation considered Lab Data Labs: Lab Results 11/26/22 11/26/22 Range/Units 09:18 09:18 COVID-19 (ARVIND) Negative (Negative) COVID-19 Clin Com See Note Influenza Type A (GRAHAM) Negative (Negative) Influenza Type B (GRAHAM) Negative (Negative) Influenza A & B Note See Note Prescription Management I considered prescription management with: Antibiotic and Other (Albuterol inhaler and Tessalon Perles) Discharge Plan Discharge Clinical Impression: Bronchitis Patient Disposition: Home, Self-Care Instructions: Acute Bronchitis (ED) Additional Instructions: Return to the ED immediately for any leg swelling, calf pain, coughing up blood, fever, chills, chest pain on inspiration, shortness of breath on exertion/chest pain on exertion, weakness, dizziness, or any other concerning symptoms. Please follow-up with the primary care provider Prescriptions: New azithromycin 250 mg tablet See Rx Instructions .ROUTE .COMPLEX Qty: 6 0RF Rx Instructions: For 250 mg dose pack: take 500 mg today (day 1), then 250 mg for 4 days (days 2-5) albuterol sulfate 90 mcg/actuation HFA aerosol inhaler 2 puff inhalation Q4-6H PRN (Reason: shortness of breath or wheezing) Qty: 8.5 0RF benzonatate 100 mg capsule 100 mg PO TID PRN (Reason: cough) 5 Days Qty: 15 0RF prednisone 20 mg tablet 40 mg PO DAILY 5 Days Qty: 10 0RF No Action acetaminophen 500 mg capsule 1,000 mg PO Q6H PRN (Reason: pain) 30 Days Qty: 90 0RF lisinopril 5 mg tablet 5 mg PO DAILY 30 Days Qty: 30 2RF melatonin 5 mg capsule 2 cap PO BEDTIME PRN (Reason: Insomnia) oxycodone 5 mg tablet 5 mg PO Q4H PRN (Reason: pain (scale score 7-10)) Qty: 20 0RF cyclobenzaprine 10 mg tablet 10 mg PO BEDTIME PRN (Reason: muscle spasm) Qty: 7 0RF lidocaine 5 % adhesive patch,medicated 1 patch topical DAILY PRN (Reason: pain) Qty: 15 0RF Rx Instructions: leave on most painful area for up to 12 hrs cephalexin 500 mg tablet 500 mg PO Q6H 10 Days Qty: 40 0RF doxycycline hyclate 100 mg capsule 100 mg PO BID 10 Days Qty: 20 0RF ondansetron HCl [Zofran] 4 mg tablet 4 mg PO Q8H PRN (Reason: nausea and vomiting) Qty: 10 0RF qfqnctjioc-nxtehzmohvfis-qmqp 50-325-40 mg capsule 1 cap PO Q6H PRN (Reason: pain) 4 Days Qty: 16 0RF Stand Alone Forms: Work/School Release Interventions: ED Discharge Assessment Last Done: 11/26/22 11:20 Discharge Date/Time: 11/26/22 11:21 Print Language: Amharic
== END 2022-11-26 11:21 | disposition home or self-care (01) ==
PROVIDERS: Emergency Provider Emergency Medicine Emergency Medical Services
DX: J40 Bronchitis, not specified as acute or chronic (principal); R07.89 Other chest pain; R05.9 Cough, unspecified; R50.9 Fever, unspecified; Z20.822 Contact with and (suspected) exposure to COVID-19; Z20.828 Contact with and (suspected) exposure to other viral communicable diseases
CPT/HCPCS: 71045; 87502; 87635; 99282; 99283

== ENCOUNTER 2023-05-05 21:58 | Emergency (ER) | payer MEDICARE, MEDICAID, SELFPAY ==
[2023-05-05 22:15] VITALS: BP 143/90; PULSE 94; RESP 18; TEMP 36.1; O2SAT 97; BMI 28.2
[2023-05-05 22:44] LABS: COVID-19 Test Positive (Negative); IDNOW Serial# 55D5AD1C
[2023-05-05 23:33] VITALS: BP 142/89; PULSE 79; RESP 16; TEMP 36.6; O2SAT 98
--- NOTE | 2023-05-05 23:35 | ED.URI ---
HPI - URI/Sore Throat General Chief Complaint: Upper Respiratory Symptoms Stated Complaint: COVID + at home test, flu like symptoms Time Seen by Provider: 05/05/23 23:28 Source: patient Mode of arrival: ambulatory Limitations: no limitations History of Present Illness HPI Narrative: Patient comes to the emergency room complaining of cough, congestion. Patient denies chest pain or shortness of breath. Patient denies fever chills. Patient states at home he tested positive for COVID. Overall, patient states that he feels fairly well, he is just concerned about getting coworkers sick. Patient states that overall he has been symptomatic for 3-4 days now. Related Data Home Medications Medication Instructions Recorded Confirmed melatonin 5 mg capsule 2 cap PO BEDTIME PRN Insomnia 01/15/21 08/13/21 Previous Rx's Medication Instructions Recorded acetaminophen 500 mg capsule 1,000 mg (2 x 500 mg) PO Q6H PRN 01/21/21 pain 30 days #90 caps oxycodone 5 mg tablet 5 mg PO Q4H PRN pain (scale score 04/14/21 7-10) #20 tabs ondansetron HCl 4 mg tablet 4 mg PO Q8H PRN nausea and 07/14/21 (Zofran) vomiting #10 tabs fjheqztrqr-nidorapladqef-cveifvmb 1 cap PO Q6H PRN pain 4 days #16 07/16/21 50 mg-325 mg-40 mg capsule caps lisinopril 5 mg tablet 5 mg PO DAILY 30 days #30 tabs 09/10/21 cyclobenzaprine 10 mg tablet 10 mg PO BEDTIME PRN muscle spasm 04/30/22 #7 tabs lidocaine 5 % topical patch 1 patch topical DAILY PRN pain #15 04/30/22 ea cephalexin 500 mg tablet 500 mg PO Q6H 10 days #40 tabs 08/11/22 doxycycline hyclate 100 mg capsule 100 mg PO BID 10 days #20 caps 08/11/22 albuterol sulfate 90 mcg/actuation 2 puff inhalation Q4-6H PRN 11/26/22 aerosol inhaler shortness of breath or wheezing #8.5 grams azithromycin 250 mg tablet See Rx Instructions PO .COMPLEX #6 11/26/22 tabs benzonatate 100 mg capsule 100 mg PO TID PRN cough 5 days #15 11/26/22 caps prednisone 20 mg tablet 40 mg (2 x 20 mg) PO DAILY 5 days 11/26/22 #10 tabs Allergies Allergy/AdvReac Type Severity Reaction Status Date / Time No Known Allergies Allergy Verified 08/11/22 20:00 [No Known Allergies*] Review of Systems Review of Systems: Constitutional : No Weight loss, No Fever, No Chills, No Night Sweats, No Fatigue, No Malaise ENT/Mouth : No Hearing loss, No Ear Pain, complaining of Nasal Congestion, No Sinus Pain, No Hoarseness, No sore throat, No Rhinorrhea, No Swallowing Difficulty Eyes: No Eye Pain, No Swelling, No Redness, No Foreign Body, No Discharge, No Vision Changes Cardiovascular : No Chest Pain, No SOB, No Dyspnea on Exertion, No Orthopnea, No Edema, No Palpitations Respiratory : Complaining of dry cough, No Wheezing, No Smoke Exposure, No Dyspnea Gastrointestinal : No Nausea, No Vomiting, No Diarrhea, No Constipation, No abdominal Pain, No Hematochezia, No Melena Genitourinary : no irregular bleeding, No Dysuria, No Urinary Frequency, No Hematuria, No Urinary Incontinence, No Urgency, No Flank Pain, No Urinary Flow Changes, No Hesitancy Musculoskeletal : No joint pain, No Myalgias, No Joint Swelling Skin : No Skin Lesions, No rash Neuro : No Weakness, No Numbness, No Paresthesias, No Loss of Consciousness, No Dizziness, No Headache Psych : No Anxiety/Panic, No Depression, No SI/HI/AH/VH, No Social Issues, Heme/Lymph: No Bruising, No Bleeding,No Lymphadenopathy Endocrine : No Polyuria, No Polydipsia, No Temperature Intolerance [facility] Past Medical History Medical History Anxiety Asthma Surgical History H/O colonoscopy History of inguinal hernia repair Hx of hand surgery Family History Family History Father No problems noted. Mother No problems noted. Brother No problems noted. Sister No problems noted. Son No problems noted. Daughter No problems noted. Other Family history non-contributory Social History Social History Household Members: Family Housing: House Do you presently have visiting nurse or other home services: No Patient Tobacco Use Status: Former Tobacco user e-Cigarette/Vaping Use: Never Used Second Hand Smoke Exposure: No service: No Current occupational status: unemployed and disabled Current occupation: left handed Physical Exam Vital Signs: Vital Signs: Last Vital Signs Temp 97.9 F 05/05/23 23:33 Pulse 79 05/05/23 23:33 Resp 16 05/05/23 23:33 BP 142/89 H 05/05/23 23:33 Pulse Ox 98 05/05/23 23:33 O2 Del Method Room Air 05/05/23 23:33 BMI result Body Mass Index 28.2 Const: Other: Appearance: Alert. Oriented X3. No acute distress. Eyes: Pupils equal, round and reactive to light. ENT: Pharynx normal. Seems to have mild nasal congestion Neck: Normal inspection. Neck supple. No lymph nodes noted. No crepitus CVS: Normal heart rate and rhythm. Pulses normal. Normal S1 and S2 Respiratory: No respiratory distress. Breath sounds normal. No Wheezing. No rales Abdomen: Soft and nontender. No rigidity. No distention. Skin: Skin warm and dry. Normal skin color. Normal skin turgor. Extremities: No lower extremity edema. No Lacerations. No Rash Neuro: Oriented X 3. No motor deficit. No sensory deficit. Moving all extremities. No slurred speech. CN 2 through 12 grossly intact Psych: calm, cooperative, normal affect Medical Decision Making Medical Decision Making [facility] Narrative: -patient is well-appearing, oxygen saturation in the high 90s even after ambulating. -my lab interpretation: patient tested positive for COVID-19 -discussed with the patient PACS of it, patient decided to treat his symptoms with Tylenol/ibuprofen which she already has at home. Differential Diagnosis Differential Diagnoses: The differential diagnosis associated with the presentation includes (COVID, URI, viral syndrome) Lab Data [facility] Lab Attestation statement: I reviewed the patient's lab results. Labs: Lab Results 05/05/23 Range/Units 22:29 COVID-19 (ARVIND) Positive A (Negative) COVID-19 Clin Com See Note Discharge Plan Discharge Clinical Impression: COVID-19 Patient Disposition: Home, Self-Care Instructions: COVID-19 (Coronavirus Disease 2019) (ED) Additional Instructions: Please follow-up with your primary care physician tomorrow. If you have any worsening or new symptoms, please return to the emergency room or call 911 Prescriptions: No Action acetaminophen 500 mg capsule 1,000 mg PO Q6H PRN (Reason: pain) 30 Days Qty: 90 0RF lisinopril 5 mg tablet 5 mg PO DAILY 30 Days Qty: 30 2RF melatonin 5 mg capsule 2 cap PO BEDTIME PRN (Reason: Insomnia) oxycodone 5 mg tablet 5 mg PO Q4H PRN (Reason: pain (scale score 7-10)) Qty: 20 0RF cyclobenzaprine 10 mg tablet 10 mg PO BEDTIME PRN (Reason: muscle spasm) Qty: 7 0RF lidocaine 5 % adhesive patch,medicated 1 patch topical DAILY PRN (Reason: pain) Qty: 15 0RF Rx Instructions: leave on most painful area for up to 12 hrs cephalexin 500 mg tablet 500 mg PO Q6H 10 Days Qty: 40 0RF doxycycline hyclate 100 mg capsule 100 mg PO BID 10 Days Qty: 20 0RF ondansetron HCl [Zofran] 4 mg tablet 4 mg PO Q8H PRN (Reason: nausea and vomiting) Qty: 10 0RF azithromycin 250 mg tablet See Rx Instructions .ROUTE .COMPLEX Qty: 6 0RF Rx Instructions: For 250 mg dose pack: take 500 mg today (day 1), then 250 mg for 4 days (days 2-5) albuterol sulfate 90 mcg/actuation HFA aerosol inhaler 2 puff inhalation Q4-6H PRN (Reason: shortness of breath or wheezing) Qty: 8.5 0RF benzonatate 100 mg capsule 100 mg PO TID PRN (Reason: cough) 5 Days Qty: 15 0RF prednisone 20 mg tablet 40 mg PO DAILY 5 Days Qty: 10 0RF evlvwzrylz-petroluceikfy-lmoo 50-325-40 mg capsule 1 cap PO Q6H PRN (Reason: pain) 4 Days Qty: 16 0RF Stand Alone Forms: Work/School Release
--- NOTE | 2023-05-05 23:56 | PC.NURSE ---
This RN only reviewed discharge instructions with pt. pt verbalized understanding.
== END 2023-05-05 23:57 | disposition home or self-care (01) ==
PROVIDERS: Emergency Provider Emergency Medicine
DX: U07.1 COVID-19 (principal)
CPT/HCPCS: 87635; 99283

== ENCOUNTER 2023-05-26 11:38 | Emergency (ER) | payer MEDICARE, MEDICAID, SELFPAY ==
[2023-05-26 12:12] VITALS: BP 140/81; PULSE 73; RESP 18; TEMP 36.1; O2SAT 96; BMI 28.2
--- NOTE | 2023-05-26 12:12 | ED_ITS ---
HPI - Extremity Injury (Upper) General Chief Complaint: Extremity Problem Stated Complaint: R hand lac-work inj Time Seen by Provider: 05/26/23 15:52 Source: patient Mode of arrival: ambulatory Limitations: no limitations History of Present Illness HPI narrative: Patient is a 57-year-old left-hand dominant male presenting to the emergency department with laceration to right hand. 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 He denies any numbness or tingling. Denies any decreased range of motion. Unsure last tetanus vaccination. complaint: injury to: right and hand Onset (ago): hour(s) Other Extremity Injury: right: hand (dorsal) Other injuries: none Handedness: left Place: work Severity: mild Relieving factors: rest Exacerbating factors: movement of extremity Context: laceration Associated symptoms: denies other symptoms Treatments prior to arrival: bandage Related Data Home Medications Medication Instructions Recorded Confirmed melatonin 5 mg capsule 2 cap PO BEDTIME PRN Insomnia 01/15/21 08/13/21 Previous Rx's Medication Instructions Recorded acetaminophen 500 mg capsule 1,000 mg (2 x 500 mg) PO Q6H PRN 01/21/21 pain 30 days #90 caps oxycodone 5 mg tablet 5 mg PO Q4H PRN pain (scale score 04/14/21 7-10) #20 tabs ondansetron HCl 4 mg tablet 4 mg PO Q8H PRN nausea and 07/14/21 (Zofran) vomiting #10 tabs jywirwowmw-bxrgzebmjwlfh-shkvnmpq 1 cap PO Q6H PRN pain 4 days #16 07/16/21 50 mg-325 mg-40 mg capsule caps lisinopril 5 mg tablet 5 mg PO DAILY 30 days #30 tabs 09/10/21 cyclobenzaprine 10 mg tablet 10 mg PO BEDTIME PRN muscle spasm 04/30/22 #7 tabs lidocaine 5 % topical patch 1 patch topical DAILY PRN pain #15 04/30/22 ea cephalexin 500 mg tablet 500 mg PO Q6H 10 days #40 tabs 08/11/22 doxycycline hyclate 100 mg capsule 100 mg PO BID 10 days #20 caps 08/11/22 albuterol sulfate 90 mcg/actuation 2 puff inhalation Q4-6H PRN 11/26/22 aerosol inhaler shortness of breath or wheezing #8.5 grams azithromycin 250 mg tablet See Rx Instructions PO .COMPLEX #6 11/26/22 tabs benzonatate 100 mg capsule 100 mg PO TID PRN cough 5 days #15 11/26/22 caps prednisone 20 mg tablet 40 mg (2 x 20 mg) PO DAILY 5 days 11/26/22 #10 tabs Allergies Allergy/AdvReac Type Severity Reaction Status Date / Time No Known Allergies Allergy Verified 08/11/22 20:00 [No Known Allergies*] Review of Systems Review of Systems: As per HPI. Yes all other systems are reviewed and are negative Constitutional: Constitutional: Reports as per HPI [facility] Past Medical History Medical History Anxiety Asthma Surgical History H/O colonoscopy History of inguinal hernia repair Hx of hand surgery Family History Family History Father No problems noted. Mother No problems noted. Brother No problems noted. Sister No problems noted. Son No problems noted. Daughter No problems noted. Other Family history non-contributory Social History Social History Household Members: Family Housing: House Do you presently have visiting nurse or other home services: No Patient Tobacco Use Status: Former Tobacco user e-Cigarette/Vaping Use: Never Used Second Hand Smoke Exposure: No Advance Directives: No Advance Directives Information Provided: No service: No Current occupational status: unemployed and disabled Current occupation: left handed Physical Exam Vital Signs: Vital Signs: Last Vital Signs Temp 97.8 F 05/26/23 15:40 Pulse 56 05/26/23 15:40 Resp 16 05/26/23 15:40 BP 144/89 H 05/26/23 15:40 Pulse Ox 96 05/26/23 15:40 O2 Del Method Room Air 05/26/23 15:40 BMI result Body Mass Index 28.2 Vital signs have been reviewed and appear to be correct. Blood pressure elevated. Heart rate normal. Respiratory rate normal. Temperature normal. Oxygen saturation normal. Const: General: cooperative, healthy appearing and no acute distress Orientation/consciousness: oriented to person, oriented to place, oriented to time and patient oriented x3 Limitations: no limitations HEENT: Head: Yes normocephalic and Yes atraumatic Ears: external ears n ormal General nose exam: Normal external nose present Face and sinus: Yes face symmetric Mouth: oropharynx normal and moist mucous membranes Throat: Yes uvula midline Eyes: Pupils: Equal, round and reactive pupils present Neck: Neck: Yes normal visual inspection and Yes supple Resp: Effort & Inspection: normal respiratory effort and able to speak in complete sentences Auscultation: clear to auscultation bilaterally Cardio: Rate: regular rate Rhythm: regular rhythm Heart sounds: S1 normal heart sound present and S2 normal heart sound present GI: Palpation (GI): Soft to palpation and nontender Auscultation: normoactive bowel sounds : General: Yes no CVA tenderness Back/Spine/Pelvis: Back: no CVA tenderness Skin: General skin exam: elasticity normal and turgor normal Neuro: General: oriented to person, oriented to place, oriented to time, patient oriented x3, moves all extremities, no focal motor deficits and CN's II- XI intact bilaterally Cranial nerves: Yes Equal, round and reactive pupils present Cognition (Neuro): normal cognition Extrem: General: Yes full ROM, Yes no pedal edema and Yes no calf tenderness Right upper extremity: Extremity exam: right hand Details: normal capillary refill, neuromotor exam normal, neurosensory exam normal, normal ROM of fingers and laceration (dorsal between 1st and 2nd metacarpal) dorsal hand dorsal aspect mid Details: linear, superficial, with motor nerve function intact and with sensation intact; not actively bleeding Psych: Mental Status: mental status grossly normal Affect: normal affect Thought process: Normal thought process present Course Course Course Narrative: RME: 57yo M w/PMHx HTN c/o laceration to R hand s/p cutting w/sheet rock at work [employer]. Tetanus unknown. +2cm suprficial laceration to R hand bwt 1-2nd MCPs volar aspect. NV intact Will need suture repair Full HPI, ROS and PE to be performed by primary ED provider. Medical Decision Making Medical Decision Making MDM Narrative: Patient is a 57-year-old left-hand dominant male presenting to the emergency department with laceration to right hand. On exam patient is awake, A+Ox3, VS WNL, afebrile, normal neurological exam without focal deficits, 2cm linear laceration to right dorsal hand without active bleeding. Given reported symptoms and physical exam findings, initial differential includes laceration, tendon injury, ligamentous injury. Tdap updated in the emergency department. Laceration repaired as per procedure note. Patient instructed to keep dressing in place, clean, and dry for the next 24 hours, then change dressing daily and assess for signs of infection and return if this occurs. Return precautions discussed at bedside. Patient instructed to avoid submerging hand in water until wound is fully healed. Patient instructed to have sutures removed in 7 days. Patient verbalized understanding of and agreement with plan. Differential Diagnosis Differential Diagnoses: The differential diagnosis associated with the presentation includes As per MDM. External Record Review External record reviewed: Inpatient record, Office record and Outpatient record Procedures Laceration Laceration 1: Site: hand Side (If applicable): right Size (cm): 2 Description: linear Depth: simple, single layer Local Anesthetic: lidocaine 1% Amount of anesthesia used (mL): 3 Pre-repair: wound explored, irrigated extensively and deep structures intact Skin layer closed with: nylon Size (cm): 5-0 Number of sutures: 5 Technique: simple, interrupted Discharge Plan Discharge Clinical Impression: Laceration of hand, right Qualifiers: Encounter type: initial encounter Foreign body presence: without foreign body Qualified Code(s): S61.411A - Laceration without foreign body of right hand, initial encounter Patient Disposition: Home, Self-Care Instructions: Diphtheria/Pertussis/Tetanus Vaccine (By injection), Care For Your Stitches (DC), Laceration (DC) Additional Instructions: You have been evaluated in the emergency department today for a laceration to your hand. Your laceration was repaired in the emergency department with sutures. Please keep the area surrounding the laceration clean and dry and keep dressing in place for the next 24 hours. After that please change the dressing and assess the wound daily for signs of infection. Keep the area out of direct sunlight for the next 6 months to help prevent scarring. Do not submerge your hand in water until fully healed (swimming, bathtub, washing dishes, etc.). Your Tdap (tetanus) vaccine was updated today. You should have the sutures removed in 7 days. If you develop fever, redness, swelling at the site of your laceration, or thick yellow drainage please come back to the ER for a wound check. Prescriptions: No Action acetaminophen 500 mg capsule 1,000 mg PO Q6H PRN (Reason: pain) 30 Days Qty: 90 0RF lisinopril 5 mg tablet 5 mg PO DAILY 30 Days Qty: 30 2RF melatonin 5 mg capsule 2 cap PO BEDTIME PRN (Reason: Insomnia) oxycodone 5 mg tablet 5 mg PO Q4H PRN (Reason: pain (scale score 7-10)) Qty: 20 0RF cyclobenzaprine 10 mg tablet 10 mg PO BEDTIME PRN (Reason: muscle spasm) Qty: 7 0RF lidocaine 5 % adhesive patch,medicated 1 patch topical DAILY PRN (Reason: pain) Qty: 15 0RF Rx Instructions: leave on most painful area for up to 12 hrs cephalexin 500 mg tablet 500 mg PO Q6H 10 Days Qty: 40 0RF doxycycline hyclate 100 mg capsule 100 mg PO BID 10 Days Qty: 20 0RF ondansetron HCl [Zofran] 4 mg tablet 4 mg PO Q8H PRN (Reason: nausea and vomiting) Qty: 10 0RF azithromycin 250 mg tablet See Rx Instructions .ROUTE .COMPLEX Qty: 6 0RF Rx Instructions: For 250 mg dose pack: take 500 mg today (day 1), then 250 mg for 4 days (days 2-5) albuterol sulfate 90 mcg/actuation HFA aerosol inhaler 2 puff inhalation Q4-6H PRN (Reason: shortness of breath or wheezing) Qty: 8.5 0RF benzonatate 100 mg capsule 100 mg PO TID PRN (Reason: cough) 5 Days Qty: 15 0RF prednisone 20 mg tablet 40 mg PO DAILY 5 Days Qty: 10 0RF mabwlvagdh-xlokdhtgbeanq-fyec 50-325-40 mg capsule 1 cap PO Q6H PRN (Reason: pain) 4 Days Qty: 16 0RF Stand Alone Forms: Work/School Release
[2023-05-26 15:40] VITALS: BP 144/89; PULSE 56; RESP 16; TEMP 36.6; O2SAT 96
[2023-05-26] MEDS: Lidocaine HCl 1 % MPF 5 ML VIAL INFILTRATI (16:25)
[2023-05-26] MEDS: Diphth,Pertus(ACell),Tet Adult 0.5 ML SYRINGE IM (16:54)
== END 2023-05-26 17:10 | disposition home or self-care (01) ==
PROVIDERS: Emergency Provider Emergency Medicine
DX: S61.411A Laceration without foreign body of right hand, initial encounter (principal); W26.0XXA Contact with knife, initial encounter; Z87.891 Personal history of nicotine dependence; Y93.H3 Activity, building and construction; Y92.9 Unspecified place or not applicable; Y99.0 Civilian activity done for income or pay
CPT/HCPCS: 12001; 90471; 90715; 99282; 99284

== ENCOUNTER 2023-05-31 16:13 | Emergency (ER) | payer MEDICARE, MEDICAID, SELFPAY ==
--- NOTE | ~2023-05-31 | XR_ITS ---
EXAMINATION: XR CHEST CLINICAL INFORMATION: Cough. COMPARISON: 11/26/2022. TECHNIQUE: 2 views of the chest were obtained. FINDINGS: The cardiomediastinal silhouette is normal. There is no focal lung consolidation or pleural effusion. The bony structures and soft tissues are unremarkable. XR/XR chest 2V IMPRESSION: No active cardiopulmonary disease.
[2023-05-31 16:28] VITALS: BP 136/89; PULSE 106; RESP 20; TEMP 36.8; O2SAT 96; BMI 29.0
--- NOTE | 2023-05-31 16:31 | ED.URI ---
HPI - URI/Sore Throat General Chief Complaint: Upper Respiratory Symptoms Stated Complaint: cough, headache, bodyache Time Seen by Provider: 05/31/23 18:56 Source: patient Mode of arrival: ambulatory Limitations: no limitations History of Present Illness HPI Narrative: 57-year-old male with a history of migraines, hypertension presents the ER with reports of 2 days of cough, headache, body aches. Per patient his has similar symptoms. No shortness of breath, chest pain, neck pain, neck stiffness, fevers, chills, leg swelling or leg pain, vomiting or diarrhea. Related Data Home Medications Medication Instructions Recorded Confirmed melatonin 5 mg capsule 2 cap PO BEDTIME PRN Insomnia 01/15/21 08/13/21 Previous Rx's Medication Instructions Recorded acetaminophen 500 mg capsule 1,000 mg (2 x 500 mg) PO Q6H PRN 01/21/21 pain 30 days #90 caps oxycodone 5 mg tablet 5 mg PO Q4H PRN pain (scale score 04/14/21 7-10) #20 tabs ondansetron HCl 4 mg tablet 4 mg PO Q8H PRN nausea and 07/14/21 (Zofran) vomiting #10 tabs adilawekyd-rfsgnifcphmdg-furouueo 1 cap PO Q6H PRN pain 4 days #16 07/16/21 50 mg-325 mg-40 mg capsule caps lisinopril 5 mg tablet 5 mg PO DAILY 30 days #30 tabs 09/10/21 cyclobenzaprine 10 mg tablet 10 mg PO BEDTIME PRN muscle spasm 04/30/22 #7 tabs lidocaine 5 % topical patch 1 patch topical DAILY PRN pain #15 04/30/22 ea cephalexin 500 mg tablet 500 mg PO Q6H 10 days #40 tabs 08/11/22 doxycycline hyclate 100 mg capsule 100 mg PO BID 10 days #20 caps 08/11/22 albuterol sulfate 90 mcg/actuation 2 puff inhalation Q4-6H PRN 11/26/22 aerosol inhaler shortness of breath or wheezing #8.5 grams azithromycin 250 mg tablet See Rx Instructions PO .COMPLEX #6 11/26/22 tabs benzonatate 100 mg capsule 100 mg PO TID PRN cough 5 days #15 11/26/22 caps prednisone 20 mg tablet 40 mg (2 x 20 mg) PO DAILY 5 days 11/26/22 #10 tabs Allergies Allergy/AdvReac Type Severity Reaction Status Date / Time No Known Allergies Allergy Verified 08/11/22 20:00 [No Known Allergies*] Review of Systems Review of Systems: Yes all other systems are reviewed and are negative Constitutional: Constitutional: Reports no additional constitutional complaints, Reports body ache(s), Denies chills, Denies fever(s), Reports headache(s) and Denies weakness Eyes: Eyes: Reports no additional eye complaints and Denies change in vision ENT: Reports system reviewed and no additional complaints, except as documented, Denies dizziness, Reports headache(s), Denies nasal congestion, Denies nasal discharge and Denies neck pain Cardiovascular: Cardiovascular: Reports no additional cardiovascular complaints, Denies chest pain, Denies leg edema and Denies dyspnea Respiratory: Respiratory: Reports no additional respiratory complaints, Reports cough and Denies dyspnea Gastrointestinal: Gastrointestinal: Reports no additional gastrointestinal complaints, Denies abdominal pain, Denies diarrhea, Denies nausea and Denies vomiting Genitourinary: Genitourinary: Denies urinary incontinence Musculoskeletal: Musculoskeletal: Reports no additional musculoskeletal complaints, Denies back pain, Denies arthralgias, Denies joint swelling, Denies neck pain, Denies numbness and Denies tingling Integumentary/Breasts: Skin/Breast: Reports system reviewed and no additional complaints, except as docu and Denies rash Neurologic: Reports system reviewed and no additional complaints, except as documented, Denies dizziness, Reports headache(s), Denies numbness, Denies tingling and Denies weakness [facility] Past Medical History Attestation statement: The following information was validated with the patient. Source: old records reviewed and nursing notes reviewed Medical History Anxiety Asthma Surgical History Hx of hand surgery H/O colonoscopy History of inguinal hernia repair Family History Family History Father No problems noted. Mother No problems noted. Brother No problems noted. Sister No problems noted. Son No problems noted. Daughter No problems noted. Other Family history non-contributory Social History Social History Household Members: Family Housing: House Do you presently have visiting nurse or other home services: No Patient Tobacco Use Status: Former Tobacco user e-Cigarette/Vaping Use: Never Used Second Hand Smoke Exposure: No Advance Directives: No Advance Directives Information Provided: No service: No Current occupational status: unemployed and disabled Current occupation: left handed Physical Exam Vital Signs: Vital Signs: Last Vital Signs Temp 98.3 F 05/31/23 16:28 Pulse 106 H 05/31/23 16:28 Resp 20 05/31/23 16:28 BP 136/89 05/31/23 16:28 Pulse Ox 96 05/31/23 16:28 O2 Del Method Room Air 05/31/23 16:28 BMI result Body Mass Index 29.0 Course Course Course Narrative: This is a rapid medical exam. Deferred additional HPI,ROS, PE to primary provider. 57 yo male with recent covid here with continued cough, body aches. Will obtain CXR, viral testing. VSS Medical Decision Making Medical Decision Making MDM Narrative: 57 yo male with a history of migraines, hypertension presents the ER with reports of 2 days of cough, headache, body aches. Per patient his has similar symptoms. No shortness of breath, chest pain, neck pain, neck stiffness, fevers, chills, leg swelling or leg pain, vomiting or diarrhea. Exam is benign. Will send viral testing. Differential Diagnosis Differential Diagnoses: The differential diagnosis associated with the presentation includes viral syndrome, influenza low concern for PE with perc 0, pneumonia Admission/Observation Consideration of admission/observation: Escalation of care including admission/observation considered No hypoxia or tachypnea to suggest need for chest x-ray, supplemental oxygen and or admission Lab Data [facility] Lab Attestation statement: I reviewed the patient's lab results. influenza A + Labs: Lab Results 05/31/23 Range/Units 17:39 Influenza Type A (PCR) POSITIVE A (Negative) Influenza Type B (PCR) NEGATIVE (Negative) RSV RNA Qual (PCR) NEGATIVE (Negative) SARS-CoV-2 RNA (RT-PCR) NEGATIVE (Negative) Independent Interpretation I performed an independent interpretation of an: Plain X-Ray Interpretation: I independently reviewed the x-ray and agree with Radiology report Radiology Impression Discussion of test interpretation with radiology: I have reviewed the radiologist's reading. Radiologist Impression: [address] [address] XRay Report Signed Patient: Jack Graham MR#: [id number] : 1965 Acct:[id number] Age/Sex: 57 / M ADM Date: 05/31/23 Loc: HO.ED Attending Dr: Ordering Physician: Yola Watson NP Date of Service: 05/31/23 Procedure(s): XR chest 2V Accession Number(s): [id number] cc: Physician,Unknown ; Yola Watson NP~ EXAMINATION: XR CHEST CLINICAL INFORMATION: Cough. COMPARISON: 11/26/2022. TECHNIQUE: 2 views of the chest were obtained. FINDINGS: The cardiomediastinal silhouette is normal. There is no focal lung consolidation or pleural effusion. The bony structures and soft tissues are unremarkable. XR/XR chest 2V IMPRESSION: No active cardiopulmonary disease. Independent Historian Clinical information obtained from an independent historian. History obtained from or confirmed by: Spouse Tests considered The following testing was considered but not selected: No hypoxia or tachypnea to suggest need for chest x-ray Prescription Management I considered prescription management with: Antiviral Discharge Plan Discharge Clinical Impression: Influenza Patient Disposition: Home, Self-Care Instructions: Influenza (ED) Additional Instructions: Alternate Motrin or Tylenol for pain or fever as needed if able Increase fluids, Prescriptions: No Action acetaminophen 500 mg capsule 1,000 mg PO Q6H PRN (Reason: pain) 30 Days Qty: 90 0RF lisinopril 5 mg tablet 5 mg PO DAILY 30 Days Qty: 30 2RF melatonin 5 mg capsule 2 cap PO BEDTIME PRN (Reason: Insomnia) oxycodone 5 mg tablet 5 mg PO Q4H PRN (Reason: pain (scale score 7-10)) Qty: 20 0RF cyclobenzaprine 10 mg tablet 10 mg PO BEDTIME PRN (Reason: muscle spasm) Qty: 7 0RF lidocaine 5 % adhesive patch,medicated 1 patch topical DAILY PRN (Reason: pain) Qty: 15 0RF Rx Instructions: leave on most painful area for up to 12 hrs cephalexin 500 mg tablet 500 mg PO Q6H 10 Days Qty: 40 0RF doxycycline hyclate 100 mg capsule 100 mg PO BID 10 Days Qty: 20 0RF ondansetron HCl [Zofran] 4 mg tablet 4 mg PO Q8H PRN (Reason: nausea and vomiting) Qty: 10 0RF azithromycin 250 mg tablet See Rx Instructions .ROUTE .COMPLEX Qty: 6 0RF Rx Instructions: For 250 mg dose pack: take 500 mg today (day 1), then 250 mg for 4 days (days 2-5) albuterol sulfate 90 mcg/actuation HFA aerosol inhaler 2 puff inhalation Q4-6H PRN (Reason: shortness of breath or wheezing) Qty: 8.5 0RF benzonatate 100 mg capsule 100 mg PO TID PRN (Reason: cough) 5 Days Qty: 15 0RF prednisone 20 mg tablet 40 mg PO DAILY 5 Days Qty: 10 0RF vdnzgsdkha-vjddzxxikuxcc-apyd 50-325-40 mg capsule 1 cap PO Q6H PRN (Reason: pain) 4 Days Qty: 16 0RF Referrals: Physician,Unknown J [Primary Care Provider] - 1 week (for continued symptoms ) Stand Alone Forms: Work/School Release Interventions: ED Discharge Assessment Last Done: 05/31/23 19:00 Discharge Date/Time: 05/31/23 19:00
[2023-05-31 18:46] LABS: Influenza A PCR POSITIVE (Negative); Influenza B PCR NEGATIVE (Negative); Resp Syncy Virus RNA Qual PCR NEGATIVE (Negative); SARS COV2 PCR INHOUSE NEGATIVE (Negative)
--- NOTE | 2024-03-27 01:24 | ED.URI ---
HPI - URI/Sore Throat General Chief Complaint: Upper Respiratory Symptoms Stated Complaint: cough, headache, bodyache Time Seen by Provider: 05/31/23 18:56 Source: patient Mode of arrival: ambulatory Limitations: no limitations Related Data Home Medications ?Medication ?Instructions ?Recorded ?Confirmed melatonin 5 mg capsule 2 cap PO BEDTIME PRN Insomnia 01/15/21 08/13/21 Previous Rx's ?Medication ?Instructions ?Recorded acetaminophen 500 mg capsule 1,000 mg (2 x 500 mg) PO Q6H PRN 01/21/21 pain 30 days #90 caps oxycodone 5 mg tablet 5 mg PO Q4H PRN pain (scale score 04/14/21 7-10) #20 tabs ondansetron HCl 4 mg tablet 4 mg PO Q8H PRN nausea and 07/14/21 (Zofran) vomiting #10 tabs kzmtjgzkka-lxxbsfoknqogc-wmcsorso 1 cap PO Q6H PRN pain 4 days #16 07/16/21 50 mg-325 mg-40 mg capsule caps lisinopril 5 mg tablet 5 mg PO DAILY 30 days #30 tabs 09/10/21 cyclobenzaprine 10 mg tablet 10 mg PO BEDTIME PRN muscle spasm 04/30/22 #7 tabs lidocaine 5 % topical patch 1 patch topical DAILY PRN pain #15 04/30/22 ea cephalexin 500 mg tablet 500 mg PO Q6H 10 days #40 tabs 08/11/22 doxycycline hyclate 100 mg capsule 100 mg PO BID 10 days #20 caps 08/11/22 albuterol sulfate 90 mcg/actuation 2 puff inhalation Q4-6H PRN 11/26/22 aerosol inhaler shortness of breath or wheezing #8.5 grams azithromycin 250 mg tablet See Rx Instructions PO .COMPLEX #6 11/26/22 tabs benzonatate 100 mg capsule 100 mg PO TID PRN cough 5 days #15 11/26/22 caps prednisone 20 mg tablet 40 mg (2 x 20 mg) PO DAILY 5 days 11/26/22 #10 tabs Allergies Allergy/AdvReac Type Severity Reaction Status Date / Time No Known Allergies Allergy Verified 08/11/22 20:00 [No Known Allergies*] PMFSH Past Medical History Medical History Anxiety Asthma Surgical History Hx of hand surgery H/O colonoscopy History of inguinal hernia repair Family History Family History Father No problems noted. Mother No problems noted. Brother No problems noted. Sister No problems noted. Son No problems noted. Daughter No problems noted. Other Family history non-contributory Social History Social History Household Members: Family Housing: House Do you presently have visiting nurse or other home services: No Patient Tobacco Use Status: Former Tobacco user e-Cigarette/Vaping Use: Never Used Second Hand Smoke Exposure: No Advance Directives: No service: No Current occupational status: unemployed and disabled Current occupation: left handed Physical Exam Vital Signs: Vital Signs: Last Vital Signs Temp 98.3 F 05/31/23 16:28 Pulse 106 H 05/31/23 16:28 Resp 20 05/31/23 16:28 BP 136/89 05/31/23 16:28 Pulse Ox 96 05/31/23 16:28 O2 Del Method Room Air 05/31/23 16:28 BMI result Body Mass Index 29.0 Medical Decision Making Lab Data Labs: Lab Results 05/31/23 Range/Units 17:39 Influenza Type A (PCR) POSITIVE A (Negative) Influenza Type B (PCR) NEGATIVE (Negative) RSV RNA Qual (PCR) NEGATIVE (Negative) SARS-CoV-2 RNA (RT-PCR) NEGATIVE (Negative) Discharge Plan Discharge Clinical Impression: Influenza Patient Disposition: Home, Self-Care Instructions: Influenza (ED) Additional Instructions: Alternate Motrin or Tylenol for pain or fever as needed if able Increase fluids, Prescriptions: No Action acetaminophen 500 mg capsule 1,000 mg PO Q6H PRN (Reason: pain) 30 Days Qty: 90 0RF lisinopril 5 mg tablet 5 mg PO DAILY 30 Days Qty: 30 2RF melatonin 5 mg capsule 2 cap PO BEDTIME PRN (Reason: Insomnia) oxycodone 5 mg tablet 5 mg PO Q4H PRN (Reason: pain (scale score 7-10)) Qty: 20 0RF cyclobenzaprine 10 mg tablet 10 mg PO BEDTIME PRN (Reason: muscle spasm) Qty: 7 0RF lidocaine 5 % adhesive patch,medicated 1 patch topical DAILY PRN (Reason: pain) Qty: 15 0RF Rx Instructions: leave on most painful area for up to 12 hrs cephalexin 500 mg tablet 500 mg PO Q6H 10 Days Qty: 40 0RF doxycycline hyclate 100 mg capsule 100 mg PO BID 10 Days Qty: 20 0RF ondansetron HCl [Zofran] 4 mg tablet 4 mg PO Q8H PRN (Reason: nausea and vomiting) Qty: 10 0RF azithromycin 250 mg tablet See Rx Instructions .ROUTE .COMPLEX Qty: 6 0RF Rx Instructions: For 250 mg dose pack: take 500 mg today (day 1), then 250 mg for 4 days (days 2-5) albuterol sulfate 90 mcg/actuation HFA aerosol inhaler 2 puff inhalation Q4-6H PRN (Reason: shortness of breath or wheezing) Qty: 8.5 0RF benzonatate 100 mg capsule 100 mg PO TID PRN (Reason: cough) 5 Days Qty: 15 0RF prednisone 20 mg tablet 40 mg PO DAILY 5 Days Qty: 10 0RF cwoplzrhnn-icasroxuidiyl-dncl 50-325-40 mg capsule 1 cap PO Q6H PRN (Reason: pain) 4 Days Qty: 16 0RF Referrals: Physician,Unknown J [Physician] - 1 week (for continued symptoms ) Stand Alone Forms: Work/School Release Interventions: ED Discharge Assessment Last Done: 05/31/23 19:00 Discharge Date/Time: 05/31/23 19:00 Print Language: Latvian
== END 2023-05-31 19:00 | disposition home or self-care (01) ==
LOC: HO.ED 19:00
PROVIDERS: Nurse Practitioner Family; Emergency Provider Internal Medicine
DX: J10.1 Influenza due to other identified influenza virus with other respiratory manifestations (principal); Z87.891 Personal history of nicotine dependence; Z11.52 Encounter for screening for COVID-19
CPT/HCPCS: 0241U; 71046; 99282; 99283

== ENCOUNTER 2023-06-02 09:04 | Emergency (ER) | payer OTHER, MEDICARE, MEDICAID, SELFPAY ==
[2023-06-02 09:12] VITALS: BP 141/86; PULSE 99; RESP 16; TEMP 36.8; O2SAT 93; BMI 27.4
--- NOTE | 2023-06-02 09:22 | ED_ITS ---
HPI - Wound/Laceration General Chief Complaint: Wound/Laceration Stated Complaint: remove stitches Time Seen by Provider: 06/02/23 09:14 Source: patient Mode of arrival: ambulatory Limitations: no limitations History of Present Illness HPI narrative: 57 yo left hand dominant male presents to the ER today for evaluation of a wound on his right hand that required suture repair 1 week ago. He states the skin around the stitches is slightly red but he denies any drainage of pus or pain. No fever or chills. Onset (ago): day(s) Extremity Location: right: hand Place: work Patient tetanus UTD: Yes Context: accidental Associated symptoms: none Related Data Home Medications Medication Instructions Recorded Confirmed melatonin 5 mg capsule 2 cap PO BEDTIME PRN Insomnia 01/15/21 08/13/21 Previous Rx's Medication Instructions Recorded acetaminophen 500 mg capsule 1,000 mg (2 x 500 mg) PO Q6H PRN 01/21/21 pain 30 days #90 caps oxycodone 5 mg tablet 5 mg PO Q4H PRN pain (scale score 04/14/21 7-10) #20 tabs ondansetron HCl 4 mg tablet 4 mg PO Q8H PRN nausea and 07/14/21 (Zofran) vomiting #10 tabs doxvwgoavl-fepkoigggunvu-ntsdkbtn 1 cap PO Q6H PRN pain 4 days #16 07/16/21 50 mg-325 mg-40 mg capsule caps lisinopril 5 mg tablet 5 mg PO DAILY 30 days #30 tabs 09/10/21 cyclobenzaprine 10 mg tablet 10 mg PO BEDTIME PRN muscle spasm 04/30/22 #7 tabs lidocaine 5 % topical patch 1 patch topical DAILY PRN pain #15 04/30/22 ea cephalexin 500 mg tablet 500 mg PO Q6H 10 days #40 tabs 08/11/22 doxycycline hyclate 100 mg capsule 100 mg PO BID 10 days #20 caps 08/11/22 albuterol sulfate 90 mcg/actuation 2 puff inhalation Q4-6H PRN 11/26/22 aerosol inhaler shortness of breath or wheezing #8.5 grams azithromycin 250 mg tablet See Rx Instructions PO .COMPLEX #6 11/26/22 tabs benzonatate 100 mg capsule 100 mg PO TID PRN cough 5 days #15 04/21/23 caps prednisone 20 mg tablet 40 mg (2 x 20 mg) PO DAILY 5 days 11/26/22 #10 tabs Allergies Allergy/AdvReac Type Severity Reaction Status Date / Time No Known Allergies Allergy Verified 08/11/22 20:00 [No Known Allergies*] Review of Systems Review of Systems: Yes all other systems are reviewed and are negative [facility] Past Medical History Medical History Anxiety Asthma Surgical History Hx of hand surgery H/O colonoscopy History of inguinal hernia repair Family History Family History Father No problems noted. Mother No problems noted. Brother No problems noted. Sister No problems noted. Son No problems noted. Daughter No problems noted. Other Family history non-contributory Social History Social History Household Members: Family Housing: House Do you presently have visiting nurse or other home services: No Patient Tobacco Use Status: Former Tobacco user e-Cigarette/Vaping Use: Never Used Second Hand Smoke Exposure: No Advance Directives: No service: No Current occupational status: unemployed and disabled Current occupation: left handed Physical Exam Vital Signs: Vital Signs: Last Vital Signs Temp 98.2 F 06/02/23 09:12 Pulse 99 06/02/23 09:12 Resp 16 06/02/23 09:12 BP 141/86 H 06/02/23 09:12 Pulse Ox 93 06/02/23 09:12 O2 Del Method Room Air 06/02/23 09:12 BMI result Body Mass Index 27.4 Appearance: Alert. Oriented X3. No acute distress. HEENT: normal inspection CVS: Normal heart rate and rhythm. Pulses normal. Respiratory: No respiratory distress. Skin: Skin warm and dry. Normal skin color. Normal skin turgor. No rashes. Extremities: dorsal aspect of the right hand, at the base of the right right thumb there is a 2.5cm linear wound w/ [address], mild erythema around the sutures w/out fluctuance, induration or drainage Neuro: Oriented X 3. No motor deficit. No sensory deficit. Medical Decision Making Medical Decision Making [facility] Narrative: 57 yo male presenting for suture removal 7 days s/p wound repair. it appears to be healing appropriately. mild separate in the central portion of the wound only, which was re-enforced w/ steri-strips. no evidence of acute infection or dehiscence. ongoing wound care discussed. stable for d/c home. Differential Diagnosis Differential Diagnoses: The differential diagnosis associated with the presentation includes appropriate wound healing, local cellulitis, delayed wound healing, wound infection, wound dehiscence External Record Review External record reviewed: Outpatient record Prescription Management I considered prescription management with: Antibiotic Critical Care Time Critical Care Time Critical Care Time: No Discharge Plan Discharge Clinical Impression: Healing wound Patient Disposition: Home, Self-Care Instructions: Stitches Removal (ED) Additional Instructions: keep the steri-strips in place for the next 5-7 days if able if they start to luis e at the edges just trim them, do not peel them off do not get the wound wet today, tomorrow you can briefly wash with soap and water and then pat dry If you develop new or worsening symptoms call 911 or come back to the ER for further evaluation. Prescriptions: No Action acetaminophen 500 mg capsule 1,000 mg PO Q6H PRN (Reason: pain) 30 Days Qty: 90 0RF lisinopril 5 mg tablet 5 mg PO DAILY 30 Days Qty: 30 2RF melatonin 5 mg capsule 2 cap PO BEDTIME PRN (Reason: Insomnia) oxycodone 5 mg tablet 5 mg PO Q4H PRN (Reason: pain (scale score 7-10)) Qty: 20 0RF cyclobenzaprine 10 mg tablet 10 mg PO BEDTIME PRN (Reason: muscle spasm) Qty: 7 0RF lidocaine 5 % adhesive patch,medicated 1 patch topical DAILY PRN (Reason: pain) Qty: 15 0RF Rx Instructions: leave on most painful area for up to 12 hrs cephalexin 500 mg tablet 500 mg PO Q6H 10 Days Qty: 40 0RF doxycycline hyclate 100 mg capsule 100 mg PO BID 10 Days Qty: 20 0RF ondansetron HCl [Zofran] 4 mg tablet 4 mg PO Q8H PRN (Reason: nausea and vomiting) Qty: 10 0RF azithromycin 250 mg tablet See Rx Instructions .ROUTE .COMPLEX Qty: 6 0RF Rx Instructions: For 250 mg dose pack: take 500 mg today (day 1), then 250 mg for 4 days (days 2-5) albuterol sulfate 90 mcg/actuation HFA aerosol inhaler 2 puff inhalation Q4-6H PRN (Reason: shortness of breath or wheezing) Qty: 8.5 0RF benzonatate 100 mg capsule 100 mg PO TID PRN (Reason: cough) 5 Days Qty: 15 0RF prednisone 20 mg tablet 40 mg PO DAILY 5 Days Qty: 10 0RF azyhjnzehr-oszaoacadkgvb-rjqp 50-325-40 mg capsule 1 cap PO Q6H PRN (Reason: pain) 4 Days Qty: 16 0RF
== END 2023-06-02 09:35 | disposition home or self-care (01) ==
PROVIDERS: Emergency Provider Emergency Medicine
DX: Z48.02 Encounter for removal of sutures (principal); Z79.899 Other long term (current) drug therapy; Z87.891 Personal history of nicotine dependence
CPT/HCPCS: 99282; 99283

== ENCOUNTER 2024-10-15 18:30 | Emergency (ER) | payer MEDICARE, MEDICAID, SELFPAY ==
--- NOTE | ~2024-10-15 | CT_ITS ---
CLINICAL HISTORY: R sided headache CT head without contrast Comparison: CT/SR - CT HEAD/BRAIN WO IV CON - 04/30/22 18:07 EDT Findings: No intra-axial mass, midline shift, hydrocephalus, or acute hemorrhage. No significant atrophy-like change or white matter disease. There is no sinus or mastoid fluid. The orbits are unremarkable. There is no acute fracture. IMPRESSION: 1. No acute intracranial findings. This document has been electronically signed by: Gerard Hilliard MD on 10/15/2024 20:14:53
[2024-10-15 18:49] VITALS: BP 143/91; PULSE 90; RESP 18; TEMP 36.6; O2SAT 98; BMI 29.0
--- NOTE | 2024-10-15 18:52 | ED_ITS ---
HPI - Headache General Chief Complaint: Headache Stated Complaint: head pain, 2 days Related Data Home Medications ?Medication ?Instructions ?Recorded ?Confirmed melatonin 5 mg capsule 2 cap PO BEDTIME PRN Insomnia 01/15/21 08/13/21 Previous Rx's ?Medication ?Instructions ?Recorded acetaminophen 500 mg capsule 1,000 mg (2 x 500 mg) PO Q6H PRN 01/21/21 pain 30 days #90 caps oxycodone 5 mg tablet 5 mg PO Q4H PRN pain (scale score 04/14/21 7-10) #20 tabs ondansetron HCl 4 mg tablet 4 mg PO Q8H PRN nausea and 07/14/21 (Zofran) vomiting #10 tabs peiofklbja-cvdrukjspwbba-loccfiyq 1 cap PO Q6H PRN pain 4 days #16 07/16/21 50 mg-325 mg-40 mg capsule caps lisinopril 5 mg tablet 5 mg PO DAILY 30 days #30 tabs 09/10/21 cyclobenzaprine 10 mg tablet 10 mg PO BEDTIME PRN muscle spasm 04/30/22 #7 tabs lidocaine 5 % topical patch 1 patch topical DAILY PRN pain #15 04/30/22 ea cephalexin 500 mg tablet 500 mg PO Q6H 10 days #40 tabs 08/11/22 doxycycline hyclate 100 mg capsule 100 mg PO BID 10 days #20 caps 08/11/22 albuterol sulfate 90 mcg/actuation 2 puff inhalation Q4-6H PRN 11/26/22 aerosol inhaler shortness of breath or wheezing #8.5 grams azithromycin 250 mg tablet See Rx Instructions PO .COMPLEX #6 11/26/22 tabs benzonatate 100 mg capsule 100 mg PO TID PRN cough 5 days #15 11/26/22 caps prednisone 20 mg tablet 40 mg (2 x 20 mg) PO DAILY 5 days 11/26/22 #10 tabs Allergies Allergy/AdvReac Type Severity Reaction Status Date / Time No Known Allergies Allergy Verified 10/15/24 18:51 [No Known Allergies*] PMFSH Past Medical History Medical History Anxiety Asthma Surgical History Hx of hand surgery H/O colonoscopy History of inguinal hernia repair Family History Family History Father No problems noted. Mother No problems noted. Brother No problems noted. Sister No problems noted. Son No problems noted. Daughter No problems noted. Other Family history non-contributory Social History Social History Household Members: Family Housing: House Do you presently have visiting nurse or other home services: No Patient Tobacco Use Status: Former Tobacco user e-Cigarette/Vaping Use: Never Used Second Hand Smoke Exposure: No Advance Directives: No Advance Directives Information Provided: No Do you have a plan to hurt others: No Plan service: No Current occupational status: unemployed and disabled Current occupation: left handed Physical Exam 2 Vital Signs: Vital Signs: Last Vital Signs Temp 98 F 10/15/24 18:49 Pulse 90 10/15/24 18:49 Resp 18 10/15/24 18:49 BP 143/91 H 10/15/24 18:49 Pulse Ox 98 10/15/24 18:49 BMI result Body Mass Index 29.0 Course Course Course Narrative: This is a Rapid Medical Examination (RME) performed by Anita Redmond PA-C in triage. Full HPI, ROS, assessment and treatment plan per primary provider in the Main ED. 58 yo male hx of HTN here for eval of R sided headache. hx of similar 2 wks ago - resolved. assoc photophobia. No nausea, vomiting, vision changes. no injury/ trauma. +exam nonfocal. ambulating w/ steady gait. Plan: labs, inflammatory markers, CT head Reevaluation(s) Reevaluation #1: Patient left the emergency department before myself or any of the other clinicians could review or explain physical exam findings, test results, need or lack there of for additional testing, treatment options, or a treatment plan. Medical Decision Making Lab Data 10/15/24 19:18 10/15/24 19:18 Labs: Lab Results 10/15/24 Range/Units 19:18 WBC 8.0 (4.8-10.8) X10*3/uL RBC 5.27 (4.60-5.80) X10*6/uL Hgb 15.3 (14.0-18.0) g/dl Hct 44.6 (42.0-52.0) % MCV 84.6 (80.0-98.0) fL MCH 29.0 (27.0-33.0) pg MCHC 34.3 (31.0-36.0) g/dl RDW 13.4 (11.0-16.0) % Plt Count 223 (160-400) X10*3/uL MPV 10.3 (9.4-12.4) fL Immature Gran % (Auto) 0.3 (0.0-0.4) % Neut % (Auto) 58.5 (45-73) % Lymph % (Auto) 30.9 (20-40) % [place] % (Auto) 7.3 (2-11) % Eos % (Auto) 2.6 (0-4) % Baso % (Auto) 0.4 (0-2) % Lymph # (Auto) 2.5 (1.2-4.9) X10*3/uL [place] # (Auto) 0.6 (0.1-1.2) X10*3/uL Eos # (Auto) 0.2 (0.0-0.4) X10*3/uL Baso # (Auto) 0.0 (0.0-0.2) X10*3/uL Abs Immat Gran (auto) 0.02 (0.00-0.03) X10*3/uL Absolute Neuts (auto) 4.7 (2.0-8.3) x10*3/uL Absolute Nucleated RBC 0.000 (0.0-0.012) X10*3/uL Nucleated RBC % (auto) 0.0 (0.0-0.2) /100WBC ESR 6 (0-15) MM/HR Sodium 143 (135-145) mmol/L Potassium 3.9 (3.3-5.1) mmol/L Chloride 106 (96-108) mmol/L Carbon Dioxide 27 (22-29) mmol/L Anion Gap 14 (12-20) BUN 21 H (9-16) mg/dL Creatinine 0.89 (0.5-1.4) mg/dL Estim Creat Clear Calc 92.5 Estimated GFR > 60 Random Glucose 106 (60-115) mg/dL Calcium 9.0 (8.4-10.2) mg/dL Magnesium 2.1 (1.6-2.6) mg/dL Total Bilirubin 0.4 (0.0-1.0) mg/dL AST 24 (5-37) U/L ALT 22 (0-40) U/L Alkaline Phosphatase 110 (39-117) U/L C-Reactive Protein 0.22 (< or = 0.50) mg/dL Total Protein 8.0 (6.5-8.0) g/dL Albumin 4.2 (3.5-5.0) g/dL Discharge Plan Discharge Clinical Impression: Headache Patient Disposition: Left W/O Completing Treatment Prescriptions: No Action acetaminophen 500 mg capsule 1,000 mg PO Q6H PRN (Reason: pain) 30 Days Qty: 90 0RF lisinopril 5 mg tablet 5 mg PO DAILY 30 Days Qty: 30 2RF melatonin 5 mg capsule 2 cap PO BEDTIME PRN (Reason: Insomnia) oxycodone 5 mg tablet 5 mg PO Q4H PRN (Reason: pain (scale score 7-10)) Qty: 20 0RF cyclobenzaprine 10 mg tablet 10 mg PO BEDTIME PRN (Reason: muscle spasm) Qty: 7 0RF lidocaine 5 % adhesive patch,medicated 1 patch topical DAILY PRN (Reason: pain) Qty: 15 0RF Rx Instructions: leave on most painful area for up to 12 hrs cephalexin 500 mg tablet 500 mg PO Q6H 10 Days Qty: 40 0RF doxycycline hyclate 100 mg capsule 100 mg PO BID 10 Days Qty: 20 0RF ondansetron HCl [Zofran] 4 mg tablet 4 mg PO Q8H PRN (Reason: nausea and vomiting) Qty: 10 0RF azithromycin 250 mg tablet See Rx Instructions .ROUTE .COMPLEX Qty: 6 0RF Rx Instructions: For 250 mg dose pack: take 500 mg today (day 1), then 250 mg for 4 days (days 2-5) albuterol sulfate 90 mcg/actuation HFA aerosol inhaler 2 puff inhalation Q4-6H PRN (Reason: shortness of breath or wheezing) Qty: 8.5 0RF benzonatate 100 mg capsule 100 mg PO TID PRN (Reason: cough) 5 Days Qty: 15 0RF prednisone 20 mg tablet 40 mg PO DAILY 5 Days Qty: 10 0RF kgchagbkny-yckzcmtkbwpqu-qzqp 50-325-40 mg capsule 1 cap PO Q6H PRN (Reason: pain) 4 Days Qty: 16 0RF Discharge Date/Time: 10/16/24 01:08
[2024-10-15 19:21] LABS: MANUAL DIFF FLAG NO
[2024-10-15 19:23] LABS: Basophils Percent Auto 0.4 % (0-2); Eosinophils Absolute Auto 0.2 X10*3/uL (0.0-0.4); Eosinophils Percent Auto 2.6 % (0-4); Hematocrit 44.6 % (42.0-52.0); Hemoglobin 15.3 g/dl (14.0-18.0); Imm Gran Abs Auto 0.02 X10*3/uL (0.00-0.03); Imm Gran Pct Auto 0.3 % (0.0-0.4); Lymphocytes Absolute Auto 2.5 X10*3/uL (1.2-4.9); Lymphocytes Percent Auto 30.9 % (20-40); Mean Corpuscular HGB Conc 34.3 g/dl (31.0-36.0); Mean Corpuscular Volume 84.6 fL (80.0-98.0); Mean Platelet Volume 10.3 fL (9.4-12.4); Monocytes Absolute Auto 0.6 X10*3/uL (0.1-1.2); Monocytes Percent Auto 7.3 % (2-11); Neutrophils Absolute Auto 4.7 x10*3/uL (2.0-8.3); Neutrophils Percent Auto 58.5 % (45-73); Platelet Count 223 X10*3/uL (160-400); Red Blood Count 5.27 X10*6/uL (4.60-5.80); Red Cell Distribution Width 13.4 % (11.0-16.0)
[2024-10-15 19:40] LABS: Alanine Aminotransferase 22 U/L (0-40); Albumin Level 4.2 g/dL (3.5-5.0); Alkaline Phosphatase 110 U/L (39-117); Anion Gap 14 (12-20); Aspartate Amino Transferase 24 U/L (5-37); Bilirubin Total 0.4 mg/dL (0.0-1.0); Blood Urea Nitrogen 21 mg/dL (9-16); C Reactive Protein 0.22 mg/dL (< or = 0.50); Carbon Dioxide 27 mmol/L (22-29); Chloride 106 mmol/L (96-108); Creatinine Clr Calc Pharmacy 92.5; Estimated Glomerular Filt Rate > 60; Glucose Random 106 mg/dL (60-115); Magnesium 2.1 mg/dL (1.6-2.6); Potassium 3.9 mmol/L (3.3-5.1); Sodium 143 mmol/L (135-145)
[2024-10-15 20:00] LABS: Erythrocyte Sedimentation Rate 6 MM/HR (0-15)
--- NOTE | 2024-10-15 23:52 | PC.NURSE ---
no answer from @23:44
--- OUTSIDE RECORDS SUMMARY | 2024-10-16 01:04 | XMS_ITS | Encounter Summary ---
Author Organization [facility] Address [address] [place] [address] [address] [place] [address] Care Team Providers Care Pest Controller Assistant Name Role Phone Unavailable Primary Care Provider Unavailabl e Encounter Details Date Type Department Care Team (Latest Contact Info) Description 03/15/2022 Abstract [facility] CONVERSIONS Dental, Provider, DDS Social History Tobacco Use Types Packs/Day Years Used Date Smoking Tobacco: Never Assessed Sex and Gender Information Value Date Recorded Sex Assigned at Male 06/07/2022 10:33 AM EDT Legal Sex Male 10:33 AM EDT Gender Identity Male 06/07/2022 10:33 AM EDT Sexual Orientation Choose not to disclose 2021 10:33 AM EDT documented as of this encounter Plan of Treatment Not on file documented as of this encounter Visit Diagnoses Not on filedocumented in this encounter
--- OUTSIDE RECORDS SUMMARY | 2024-10-16 01:04 | XMS_ITS | Clinical Summary ---
Author Organization [facility] Address [address] [place] [address] [address] [place] [address] Care Team Providers Care Lamp Shade Joiner Name Role Phone Unavailable Primary Care Provider Unavailabl e Allergies No known active allergies Medications No known medications Active Problems Problem Noted Date Diagnosed Date Periodontal disease 11/03/2023 Social History Tobacco Use Types Packs/Day Years Used Date Smoking Tobacco: Former Cigarettes Smokeless Tobacco: Never Tobacco Cessation:Counseling Given: Not Answered Alcohol Use Standard Drinks/Week Comments Not Currently 0 (1 standard drink = 0.6 oz pur e alcohol) Sex and Gender Information Value Date Recorded Sex Assigned at Male 06/07/2022 10:33 AM EDT Legal Sex Male 10:33 AM EDT Gender Identity Male 06/07/2022 10:33 AM EDT Sexual Orientation Choose not to disclose 2021 10:33 AM EDT Last Filed Vital Signs Vital Sign Reading Time Taken Comments Blood Pressure 130/90 11/22/2023 2:33 PM EDT Pulse - - Temperature - - Respiratory Rate - - Oxygen Saturation - - Inhaled Oxygen Concentration - - Weight - - Height - - Body Mass Index - - Plan of Treatment Health Maintenance Due Date Last Done Comments CT Colonography 1964 Colonoscopy 1964 Colorectal Cancer Screening 1964 Depression Screening 1964 FIT DNA/Cologuard 1964 FIT 1964 FOBT 1964 HIV Screening 1964 Lipid Panel 1964 SDOH Screening 1964 Sigmoidoscopy 1964 Alcohol/Substance Use Screening 1976 Hepatitis C Screening 1982 Hepatitis B Vaccines (1 of 3 - 19+ 3-dose series) 12/12/1983 Pneumococcal Vaccine: 50+ Years (1 of 1 - PCV) 2014 Zoster Vaccines (1 of 2) 2014 Dental Prophylaxis 09/16/2022 03/15/2022, 0 09/03/2021, 01/19/2021 COVID-19 Vaccine (3 season) 2024 12/24/2020, 11/26/2020 Influenza Vaccine (#1) 2024 Dental Oral Exam 05/24/2024 11/22/2023, 03/2022, 01/19/2021, Additional history exists Tobacco Screening 11/21/2024 11/22/2023 Dental X-Ray: Bitewings 11/22/2024 11/22/19 24, 03/15/2022, 01/19/2021, Additional history exists Dental X-Ray: Full Mouth 11/22/2026 024, 01/19/2021, 10/20/2017 DTaP/Tdap/Td Vaccines (3 - Td or Tdap) 05/26/2033 05/26/2023, 08/11/2022 RSV Patients and Patients Aged 60 years or older (1 - 1-dose 75+ series) 12/12/2039 HIB Vaccines Aged Out No longer eligi ble based on patient's age to complete this topic HPV Vaccines Aged Out No longer eligi ble based on patient's age to complete this topic Hepatitis A Vaccines Aged Out No long er eligible based on patient's age to complete this topic IPV Vaccines Aged Out No longer eligi ble based on patient's age to complete this topic Meningococcal Vaccine Aged Out No jayleen ganesh eligible based on patient's age to complete this topic RSV under 20 months Aged Out No longe r eligible based on patient's age to complete this topic Rotavirus Vaccines Aged Out No longer eligible based on patient's age to complete this topic Procedures Procedure Name Priority Date/Time Associated Diagnosis Comments INTRAORAL - COMPLETE SERIES OF RADIOGRAPHIC IMAGES Routine 11/22/2023 2:30 PM EDT Periodontal disease Encounter for dental examination Gingival recession, localized PERIODIC ORAL EVALUATION - ESTABLISHED PATIENT Routine 11/22/2023 2:30 PM EDT Periodontal disease Encounter for dental examination Gingival recession, localized PROPHYLAXIS - ADULT Routine 03/15/2022 1 2:00 AM EDT from Last 3 Months or Most Recently Relevant to Health Maintenance Insurance [facility] MEDICAID STAND ADULT * Guarantor: Jack Fofana Account Type Relation to Patient Date of Phone Billing Address Personal/Family [facility]
--- OUTSIDE RECORDS SUMMARY | 2024-10-16 01:04 | XMS_ITS | Encounter Summary ---
Author Organization [employer] [facility] Address [address] [place] [address] [address] [place] [address] Care Team Providers Care Underwriting Clerks Supervisor Name Role Phone Unavailable Primary Care Provider Unavailabl e Encounter Details Date Type Department Care Team (Latest Contact Info) Description 01/19/2021 Abstract HHC CONVERSIONS Dental, Provider, DDS Social [...]
== END 2024-10-16 01:08 | disposition left against medical advice (07) ==
PROVIDERS: Physician Assistant Medical; Emergency Provider Emergency Medicine; PCP Internal Medicine
DX: R51.9 Headache, unspecified (principal); H53.143 Visual discomfort, bilateral; I10 Essential (primary) hypertension; Z79.899 Other long term (current) drug therapy; Z87.891 Personal history of nicotine dependence
CPT/HCPCS: 36415; 70450; 80053; 83735; 85025; 85652; 86140; 99281; 99284

== ENCOUNTER → 2024-10-15 18:52 | Outpatient (BNV) | payer MEDICARE, MEDICAID, SELFPAY | PROVIDERS: PCP Internal Medicine; Visit Provider Student in an Organized Health Care Education/Training Program | DX: R51.9 Headache, unspecified (principal) | CPT/HCPCS: 70450 ==